=== PATIENT | female | born 1980 | race Caucasian/White ===

== ENCOUNTER → 2017-07-19 17:26 | Outpatient (CLI) | payer OTHER, SELFPAY ==
--- NOTE | 2017-07-19 | XR_ITS ---
XR chest 2V HISTORY: ITS.REASON: CHEST PAIN ORDERING PHYSICIAN: Raphael Parikh MD PATIENT AGE: 36 years COMPARISON: FINDINGS: The cardiomediastinal silhouette and pulmonary vascularity are within normal limits. The lungs are clear without infiltrates, suspicious nodules, or pleural effusions. No acute bony abnormalities. IMPRESSION: Negative chest, no acute finding
== END ==
PROVIDERS: PCP Family Medicine; Visit Provider Family Medicine
DX: R07.9 Chest pain, unspecified (principal); R03.0 Elevated blood-pressure reading, without diagnosis of hypertension
CPT/HCPCS: 71046

== ENCOUNTER → 2017-09-20 10:38 | Outpatient (CLI) | payer BC, SELFPAY ==
--- NOTE | 2017-09-20 10:43 | CT_ITS ---
CT chest w con INDICATION: Left-sided chest pain ITS.REASON: NON CARDIAC CHEST PAIN ORDERING PHYSICIAN: Raphael Parikh MD PATIENT AGE: 37 years COMPARISON: None TECHNIQUE: Axial images are obtained with contrast. Sagittal and coronal reformatted images are reviewed as well. All CT scans at the facility use one or more dose reduction, viz: automated exposure control; ma/kV adjustment per patient size (including targeted exams where dose is matched to indication; i.e. head); or iterative reconstruction technique. FINDINGS: The lung castano are well expanded. There is excellent vascular opacification. Cardiac size is normal and the vascularity is normal. Lung windows show no pulmonary infiltrate. There is no pleural fluid. There is no abnormal superior mediastinal or hilar lymphadenopathy. There is mild diffuse dextroscoliotic curvature of the thoracic spine. IMPRESSION: Unremarkable CT scan chest, no acute pathology noted.
== END ==
PROVIDERS: Family Provider Physician Assistant; PCP Family Medicine; Visit Provider Family Medicine
DX: R07.89 Other chest pain (principal)
CPT/HCPCS: 71260; Q9967

== ENCOUNTER → 2017-11-20 18:20 | Outpatient (REF) | payer BC, SELFPAY | LOC: LAB 18:20 | PROVIDERS: Visit Provider Emergency Medicine | DX: J02.9 Acute pharyngitis, unspecified (principal) ==

== ENCOUNTER → 2018-01-31 11:01 | Outpatient (CLI) | payer BC, SELFPAY ==
--- NOTE | 2018-01-31 11:06 | NVE_ITS ---
Venous Exam Indications: 729.5 Pain in limb. IMPRESSIONS No evidence of deep or superficial vein thrombosis involving the veins of the left upper extremity History: Left upper extremity pain. Risk factors: Family history of deep vein thrombosis. Hypercoagulable state due to hormone replacement therapy. Patient is taking control pills. States her daughter had PE's and DVT's recently so she was concerned that hers might be too. Left upper extremity venous duplex. Doppler flow study including spectral analysis, color and lee scale imaging. Location: Vascular laboratory. Patient status: Outpatient. Tables: Venous flow and imaging: + + + Location Flow properties + + + Left internal jugular Normal phasicity; spontaneous; compressible + + + Left subclavian Normal phasicity; spontaneous; normal augmentation; compressible + + + Left axillary Normal phasicity; spontaneous; normal augmentation; compressible + + + Left brachial Normal phasicity; spontaneous; normal augmentation; compressible + + + Left cephalic Normal phasicity; spontaneous; normal augmentation; compressible + + + Left basilic Normal phasicity ; spontaneous; normal augmentation; compressible + + + Left radial Compressible + + + Left ulnar Compressible + + + (Report amended ) Electronically signed by: Asim Bowles [id number]
== END ==
PROVIDERS: PCP Emergency Medicine; Visit Provider Nurse Practitioner Family
DX: M79.602 Pain in left arm (principal)
CPT/HCPCS: 93971

== ENCOUNTER → 2018-04-10 12:58 | Outpatient (CLI) | payer BC, SELFPAY | PROVIDERS: PCP Nurse Practitioner Family; Visit Provider Physician Assistant | DX: R07.9 Chest pain, unspecified (principal); R06.09 Other forms of dyspnea | CPT/HCPCS: 93017 ==

== ENCOUNTER → 2018-04-13 15:02 | Outpatient (CLI) | payer BC, SELFPAY ==
--- NOTE | 2018-04-13 15:03 | CA_ITS ---
PROCEDURE: 2-D M-mode and color Doppler study INDICATIONS FOR THE TEST: Chest pain+ COPD Heart Murmur Tobacco Smoking Palpitations Fatigue Syncope Edema Hypertension Diabetes Mellitus Rheumatic Fever SOB+MORENO Obesity Hyperlipidemia+ Family History HD Additional History abn ekg,pvc's PATIENT INFORMATION HEIGHT: 68 WEIGHT:191 GENDER: Female B/P:144/62 2-D/M-MODE INTERPRETATION: 2-D MEASUREMENTS OBSERVED VALUES IN CMS Right Ventricular Dimension (RVDd) 2.5 Interventricular Septum (Thickness)(IVsd) 0.8 Left Ventricular Internal Dimensions(LVIDd) 4.5 Left Ventricular Posterior Wall (Thickness)(LVPWd) 0.8 Aortic Root 2.4 Aortic Cusp Separation 2.2 Left Atrial Dimensions (LAD) 2.2 2D 1. Left Atrium is normal size, left ventricle is normal size, visually estimated ejection fraction of 55% with no regional wall motion abnormality, there is no concentric left ventricular hypertrophy. 2. The right atrium and right ventricle are normal size and contractility. 3. The aortic, mitral and tricuspid valve is normal. 4. The pulmonic valve is poorly visualized. 5. No significant pericardial effusion noted. DOPPLER INTERROGATION: Doppler interrogation of the aortic, mitral and tricuspid valvular presence of mild mitral and tricuspid regurgitation, tricuspid regurgitation jet velocity is inadequate for calculation of the right ventricular systolic pressure, diastolic parameters are within normal range. CONCLUSION: 1. Normal left ventricular size, preserved left ventricular systolic function, visually estimated ejection fraction 55% with no regional wall motion abnormality, diastolic parameters are within normal range. 2. Mild mitral and tricuspid regurgitation 3. No significant pericardial effusion noted.
== END ==
PROVIDERS: PCP Nurse Practitioner Family; Visit Provider Nurse Practitioner Family
DX: R06.00 Dyspnea, unspecified (principal); R07.9 Chest pain, unspecified
CPT/HCPCS: 93306

== ENCOUNTER → 2019-06-22 16:05 | Outpatient (CLI) | payer BC, SELFPAY | PROVIDERS: PCP Family Medicine; Visit Provider Physician Assistant | DX: R00.2 Palpitations (principal) | CPT/HCPCS: 93225; 93226 ==

== ENCOUNTER → 2019-06-29 14:42 | Outpatient (CLI) | payer BC, SELFPAY ==
[2019-06-30 08:49] LABS: Covid-19 Nasal PCR Sendout Lex Not Detected
--- NOTE | 2019-06-30 09:05 | PC.NURSE ---
Notified patient & Dr Frederikc of NEGATIVE COVID-19 results. Results faxed to [facility].
== END ==
PROVIDERS: Visit Provider Physician Assistant
DX: R06.02 Shortness of breath (principal)
CPT/HCPCS: U0003

== ENCOUNTER → 2019-07-06 15:49 | Outpatient (CLI) | payer BC, SELFPAY ==
--- NOTE | 2019-07-06 15:53 | MR_ITS ---
PROCEDURE: MR HEAD/BRAIN WO/W CON CLINICAL INDICATION: DIZZINESS Dizziness, headache, infection COMPARISON: No exams were available for comparison TECHNIQUE: Routine multiplanar multi echo sequences are performed without and with gadolinium enhancement. FINDINGS: Study is somewhat limited secondary to motion artifact. No midline shift, mass effect, intracranial hemorrhage, or hydrocephalus is evident. There is no evidence of acute infarction. No enhancing lesions are evident. There are cystic changes present in the medial aspect of the left cerebellar hemisphere contiguous with the lateral aspect of the 4th ventricle. This is without enhancement or surrounding mass effect and could be related to encephalomalacia change from an old infarction. Small cystic changes are also present in the left cerebral peduncle and lateral aspect of the melecio. There are a few scattered nonspecific small T2 white matter hyperintensities. No mastoid effusion or sinus air-fluid level. IMPRESSION: 1. No acute intracranial finding. 2. 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 This may represent an old area of infarction. Please correlate with clinical parameters. 3. There are few nonspecific scattered foci of T2 white matter hyperintensity which could be seen with ischemic gliotic change or migraine headache. Demyelinating process is included in the differential diagnosis but is felt to be less likely based on imaging characteristics. Dictated by: Asim Bowles MD 07/07/2019 12:28 Electronically signed by Asim Bowles MD in [place] 07/07/2019 12:28
== END ==
PROVIDERS: PCP Family Medicine; Visit Provider Physician Assistant
DX: R42 Dizziness and giddiness (principal)
CPT/HCPCS: 70553; A9576

== ENCOUNTER → 2019-08-01 14:19 | Outpatient (CLI) | payer BC, SELFPAY ==
--- NOTE | 2019-08-01 14:20 | CA_ITS ---
APPROVED REPORT EXAM: Comprehensive 2D, Doppler, and color-flow Echocardiogram Supervisor Blood: Yamilet Moss RDCS Ht: 5 ft 7 in Wt: 192lbs BSA: 1.99 BP: 110/70 mmHg Indications: PALPS,PVC,DIZZINESS 2D Dimensions LVOT 1.85 cm (M/F) 1.5-2.5 M-Mode Dimensions RVDd 2.74 cm (0.9-2.6) LVDd 4.90 cm (3.5-5.7) LVDs 3.57 cm (3.5-5.7) IVSd 0.87 cm (0.6-1.1) PWd 0.61 cm (0.6-1.1) EF (Teich) 52.70% FS 27.10% EDV (Teich) 112.80 mL ESV (Teich) 53.30 mL LV Diastology E/A Ratio 1.38 Mitral Valve MV A Velocity 55.00 (40-130 cm/s) Left Ventricle Left atrium is normal size, left ventricle is normal size, there is no concentric left ventricular hypertrophy, visually estimated ejection fraction 55% with no regional wall motion abnormality, diastolic parameters are within normal range. Right Ventricle Right atrium and right ventricular normal size and contractility. Aortic Valve Aortic valve is grossly normal, there is no aortic stenosis or aortic insufficiency. Mitral Valve Mitral valve is grossly normal, there is trace mitral regurgitation. Tricuspid Valve Tricuspid valve is grossly normal, there is trace tricuspid regurgitation. Pulmonic Valve Pulmonic valve is poorly visualized. Great Vessels Aortic root is normal size. Pericardium No significant pericardial effusion noted. Conclusion 1. Normal left ventricular size, preserved left ventricular systolic function, visually estimated ejection fraction 55% with no regional wall motion abnormality, diastolic parameters are within normal range. 2. Trace mitral and tricuspid regurgitation of no hemodynamic significance. 3. No significant pericardial effusion noted. Electronically signed by : Cruz Koo, 08/02/2019 16:13:16
== END ==
PROVIDERS: PCP Family Medicine; Visit Provider Physician Assistant
DX: R07.9 Chest pain, unspecified (principal); R06.00 Dyspnea, unspecified; I49.3 Ventricular premature depolarization; E78.5 Hyperlipidemia, unspecified
CPT/HCPCS: 93306

== ENCOUNTER 2019-08-26 15:30 | Emergency (ER) | payer BC, SELFPAY ==
[2019-08-26 15:42] VITALS: BP 142/77; PULSE 81; RESP 20; TEMP 37.1; O2SAT 98; BMI 29.7
--- NOTE | 2019-08-26 15:53 | HMH.EDUTC ---
[facility] [place] Disposition Clinical Impression: Poison josephine dermatitis Contact dermatitis Qualifiers: Contact dermatitis type: unspecified Contact dermatitis trigger: other trigger Qualified Code(s): L25.8 - Unspecified contact dermatitis due to other agents Cellulitis Qualifiers: Site of cellulitis: trunk Site of cellulitis of trunk: abdominal wall Qualified Code(s): L03.311 - Cellulitis of abdominal wall Disposition: Home, Self-Care Condition on Discharge: Good Instructions: Cellulitis, DI for Poison Josephine Allergy Additional Instructions: Drink plenty of fluids. Take tylenol or ibuprofen for pain or fever. Take benedryl every 6 hours regularly for the next 3 days at least. Take the medications as directed. The zofran is for nausea. The medications can cause upset stomach. Follow up with your regular doctor. GO TO THE ER FOR ANY WORSENING SYMPTOMS Don't start the oral steroids until tomorrow, since you had the shot here today. Prescriptions: Ondansetron [Zofran 4mg ODT] 4 mg PO Q8HP PRN #10 tab.rapdis PRN Reason: Nausea Transmission Status: Received by [id number] predniSONE [Deltasone 10mg tablet] 10 mg PO BID 9 Days #21 tab Transmission Status: Received by [id number] Doxycycline Hyclate [Doxycycline 100mg Capsule] 100 mg PO Q12 10 Days #20 cap Transmission Status: Received by [facility] Triamcinolone Acetonide 1 applicatio TP TIDP PRN 7 Days #1 tube PRN Reason: Itching Transmission Status: Received by [facility] Referrals: Lindy Vang PA [Primary Care Provider] - Time of Disposition: 16:15 Medical Decision Making - Medical Records Medical records reviewed: No: I reviewed the patient's medical records. - Keo Inquiry Pt receiving controlled substance: No Vital Signs: 08/26/19 15:42 08/26/19 16:15 Temperature 98.8 F 98.8 F Temperature Source Oral Pulse Rate 81 Pulse Rate [Right Brachial] 81 Respiratory Rate 20 20 Blood Pressure 142/77 H Blood Pressure [Right Arm] 142/77 H Blood Pressure Mean [Right Arm] 98 Blood Pressure Source [Right Arm] Automatic Cuff Blood Pressure Position [Right Arm] Sitting 02 Sat by Pulse Oximetry 98 Oxygen Delivery Method Room Air Orders (Tests/Meds): ED MEDICATIONS Discontinued Medications Generic Name Dose Route Start Last Admin Trade Name Jewel PRN Reason Stop Dose Admin Methylprednisolone Sodium Succinate 125 mg 08/26/19 15:53 08/26/19 16:00 Solu-Medrol 125mg/2ml Vial IM 08/26/19 15:54 125 mg ONCE ONE Administration [facility] [place] HPI - General Stated complaint: rash on right side Time Seen by Provider: 08/26/19 15:53 Mode of Arrival: Ambulatory Source of Information: Patient Limitations: No Limitations Description of Symptoms (Recalled from Triage Doc. by RN): PATIENT C/O RASH TO RIGHT SIDE X 3 DAYS, POSSIBLE POISON JOSEPHINE. REDNESS AND DRAINAGE NOTED HEENT Symptoms (Recalled from RN notes): No Resp Symptoms (Recalled from RN notes): No Skin Symptoms (Recalled from RN notes): Yes MS Symptoms (Recalled from RN notes): No Functional Status (Recalled from RN notes): WNL - History of Present Illness Provider Complaint: She states that she was pulling weeds in her yard 3 days ago when she came into contact with poison josephine. Since then she has broke out with a rash on her right flank, across her abdomen, small areas on her face and several small areas on her forearms. She denies any fever or chills. - Related Data Home Medications Medication Instructions Recorded Confirmed norgestimate-ethinyl estradiol 1 tab PO ONCE 05/27/17 04/10/18 Previous Rx's Medication Instructions Recorded propranolol 20 mg tablet 20 mg PO BID #60 tab 06/29/19 Doxycycline Hyclate [Doxycycline 100 mg PO Q12 10 Days #20 cap 08/26/19 100mg Capsule] Ondansetron [Zofran 4mg ODT] 4 mg PO Q8HP PRN #10 tab.rapdis 08/26/19 Triamcinolone Acetonide 1 applicatio TP TIDP PRN 7 Da
[2019-08-26 16:15] VITALS: BP 142/77; PULSE 81; RESP 20; TEMP 37.1; O2SAT 98
== END 2019-08-26 16:21 | disposition home or self-care (01) ==
PROVIDERS: Emergency Provider Nurse Practitioner Family; PCP Physician Assistant
DX: L24.7 Irritant contact dermatitis due to plants, except food (principal); L03.311 Cellulitis of abdominal wall; Z88.0 Allergy status to penicillin
CPT/HCPCS: 96372; 99201

== ENCOUNTER → 2019-09-25 16:20 | Outpatient (CLI) | payer BC, SELFPAY ==
--- NOTE | 2019-09-25 16:23 | MM_ITS ---
PROCEDURE: MM DIG SCREENING MAMM BI W/CAD Digital Breast Tomosynthesis Included CLINICAL INDICATION: SCREENING There is a history of breast cancer patient's maternal grandmother. The patient is currently on control pills. COMPARISON: [facility] MOBILE BREAST TOMOSYNTHESIS SCREEN from 07/28/2017 [facility] ROXANE DIGITAL SCREEN BILATERAL from 08/09/2018 TECHNIQUE: Standard CC and MLO images and 3D Tomosynthesis was obtained. R2 CAD reviewed. FINDINGS: Moderate diffuse fibroglandular densities are seen in the central portions of both breasts. There are scattered benign-appearing microcalcifications in each breast. There has been some mild fatty replacement of the breast parenchyma compared to the previous 2 studies from July 2017 in August 2018. IMPRESSION: Moderate diffuse breast density with no suspicious lesions seen BI-RAD Category: 2 Benign Finding(s) FOLLOW-UP: 1YR 1 Year Follow-up (A letter has been sent to the patient regarding results of the study.) Dictated by: Dr. Enrike Fitch MD 09/29/2019 09:[address] Enrike Fitch MD in [place] 09/29/2019 09:58
== END ==
PROVIDERS: PCP Physician Assistant; Visit Provider Obstetrics & Gynecology
DX: Z12.31 Encounter for screening mammogram for malignant neoplasm of breast (principal)
CPT/HCPCS: 77063; 77067

== ENCOUNTER → 2020-03-05 14:07 | Outpatient (CLI) | payer BC, SELFPAY ==
--- NOTE | 2020-03-05 14:18 | XR_ITS ---
PROCEDURE: XR ORTHOPANTOGRAM CLINICAL INDICATION: DISORDER OF SOFT TISSUE NECK COMPARISON: No exams were available for comparison FINDINGS: No fracture or dislocation. No lytic or blastic change. There is normal mineralization. The joint spaces are well-preserved. No significant degenerative/arthritic changes. No erosive changes evident. Other findings:None. IMPRESSION: No acute findings. Dictated by: Asim Bowles MD 03/10/2020 09:53 Asim Bowles MD in [place] 03/10/2020 09:53
== END ==
PROVIDERS: PCP Family Medicine; Visit Provider Family Medicine
DX: M79.9 Soft tissue disorder, unspecified (principal)
CPT/HCPCS: 70355

== ENCOUNTER → 2020-10-03 10:54 | Outpatient (CLI) | payer BC, SELFPAY ==
--- NOTE | 2020-10-03 10:57 | MM_ITS ---
PROCEDURE: MM DIG SCREENING MAMM BI W/CAD Digital Breast Tomosynthesis Included CLINICAL INDICATION: SCREENING COMPARISON: [facility] MOBILE BREAST TOMOSYNTHESIS SCREEN from 07/28/2017 [facility] ROXANE DIGITAL SCREEN BILATERAL from 08/09/2018 [facility] MM DIG SCREENING MAMM BI W/CAD from 09/25/2019 TECHNIQUE: Standard CC and MLO images and 3D Tomosynthesis was obtained. R2 CAD reviewed. FINDINGS: There is average to dense fibroglandular tissue. No malignant appearing mass or malignant-appearing microcalcification. Numerous skin calcifications are present. No asymmetric density architectural distortion or skin thickening. IMPRESSION: No evidence of malignancy BI-RAD Category: 2 Benign Finding FOLLOW-UP: 1 YR 1 Year Follow-up (A letter has been sent to the patient regarding results of the study.) Dictated by: Asim Bowles MD 10/10/2020 17:16 Asim Bowles MD in [place] 10/10/2020 17:16
== END ==
PROVIDERS: PCP Family Medicine; Visit Provider Obstetrics & Gynecology
DX: Z12.31 Encounter for screening mammogram for malignant neoplasm of breast (principal)
CPT/HCPCS: 77063; 77067

== ENCOUNTER → 2020-11-18 11:20 | Outpatient (CLI) | payer BC, SELFPAY | PROVIDERS: PCP Physician Assistant; Visit Provider Nurse Practitioner | DX: U07.1 COVID-19 (principal) | CPT/HCPCS: C9803; U0003; U0005 ==

== ENCOUNTER → 2020-11-27 15:11 | Outpatient (CLI) | payer BC, SELFPAY ==
[2020-11-27 15:43] LABS: Basophils # 0.1 K/mm3 (0-0.2); Basophils % 0.9 % (0.1-2.0); Eosinophils # 0.1 K/mm3 (0.0-0.4); Hematocrit 42.2 % (37.0-47.0); Hemoglobin 13.5 g/dL (12.2-16.2); Lymphocytes # 3.5 K/mm3 (0.7-4.5); Lymphocytes % 30.1 % (10-50); Mean Corpuscular Hemoglobin 29.1 pg (27.0-31.2); Mean Corpuscular Volume 90.9 fl (81-99); Monocytes # 0.3 K/mm3 (0.1-1.0); Monocytes % 2.4 % (1.7-9.3); Neutrophils # 7.5 K/mm3 (1.8-7.8); Neutrophils % 65.6 % (37.0-80.0); Platelet Count 353 K/mm3 (142-424); Red Blood Count 4.64 M/mm3 (4.20-5.40); Red Cell Distribution Width 13.5 % (11.5-17.5); White Blood Count 11.5 K/mm3 (4.8-10.8)
[2020-11-27 16:19] LABS: Chloride 105 mmol/L (98-107); Sodium 139 mmol/L (136-145)
[2020-11-27 16:21] LABS: Alanine Aminotransferase 15 U/L (12-78); Blood Urea Nitrogen 8 mg/dl (7-17); Estimated Glomerular Filt Rate 80 ml/min (>60); GFR (African American) 97 ML/MIN (>60)
[2020-11-27 16:22] LABS: Albumin Level 4.5 g/dl (3.5-5.0); Albumin/Globulin Ratio 1.6 (1.1-1.8); Alkaline Phosphatase 63 U/L (38-126); Aspartate Amino Transferase 24 U/L (14-36); Bilirubin,Total 0.1 mg/dl (0.2-1.3); Calcium 9.4 mg/dl (8.4-10.2); Carbon Dioxide 22 mmol/L (22.0-30.0); Globulin 2.9 g/dL (1.3-3.2); Glucose 121 mg/dl (74-100); Total Protein,Serum 7.4 g/dl (6.3-8.2)
== END ==
PROVIDERS: Visit Provider Physician Assistant
DX: N30.90 Cystitis, unspecified without hematuria (principal); J06.9 Acute upper respiratory infection, unspecified
CPT/HCPCS: 36415; 80053; 85025

== ENCOUNTER → 2020-11-28 14:23 | Outpatient (CLI) | payer BC, SELFPAY ==
[2020-11-28 14:27] LABS: Microscopic, Urine URINE MICROSCOPIC (MICROSCOPIC)
[2020-11-28 14:53] LABS: Appearance,Urine SL CLOUDY (Clear); Bilirubin,Urine Negative (Negative); Blood, Urine 3+ (Negative); Color,Urine ORANGE (Yellow); Glucose,Urine (UA) TRACE (Negative); Ketones,Urine TRACE (Negative); Leukocyte Esterase,Urine 2+ (Negative); Nitrate,Urine POSITIVE (Negative); Protein,Urine 1+ (Negative)
[2020-11-28 15:16] LABS: Bacteria,Urine 2+ /lpf; WBC,Urine Occasional #/hpf (0-3)
== END ==
PROVIDERS: Visit Provider Physician Assistant
DX: R35.0 Frequency of micturition (principal)
CPT/HCPCS: 81001; 87086

== ENCOUNTER → 2020-12-03 16:42 | Outpatient (CLI) | payer BC, SELFPAY ==
--- NOTE | 2020-12-03 16:46 | XR_ITS ---
PROCEDURE: XR ABDOMEN MIN 2V CLINICAL INDICATION: LOWER ABD PAIN COMPARISON: No exams were available for comparison FINDINGS: Upright and supine views of the abdomen demonstrates a nonspecific nonobstructive bowel gas pattern. There are 2 small right renal calculi largest 3 mm. No obvious ureteral calculi. There is minimal lumbar curvature convex right. No free air evident. IMPRESSION: Right nephrolithiasis Dictated by: Asim Bowles MD 12/03/2020 17:13 Asim Bowles MD in [place] 12/03/2020 17:13
== END ==
PROVIDERS: PCP Physician Assistant; Visit Provider Physician Assistant
DX: R10.30 Lower abdominal pain, unspecified (principal)
CPT/HCPCS: 74019

== ENCOUNTER → 2020-12-05 06:55 | Outpatient (CLI) | payer BC, SELFPAY ==
--- NOTE | 2020-12-05 06:56 | CT_ITS ---
PROCEDURE: CT ABDOMEN PELVIS WO CON CLINICAL INDICATION: kidney stone COMPARISON: No exams were available for comparison TECHNIQUE: Axial images obtained with sagittal and coronal reformats. All CT scans at the facility use one or more dose reduction, viz: automated exposure control, ma/kV adjustment per patient size (including targeted exams where dose is matched to indication, i.e. head), or iterative reconstruction technique. FINDINGS: LOWER THORAX: No acute finding ABDOMEN & PELVIS: The liver, spleen, adrenal glands, pancreas, and gallbladder have an unremarkable unenhanced appearance. A 3 mm nonobstructing stone is present in the mid polar region of the right kidney. No ureteral calculi. No hydronephrosis. No bladder stones apparent. No intestinal obstruction or free air. There is a mild amount of retained colonic feces. No evidence of appendicitis. The right ovary is enlarged at 5.5 x 3 cm. No abnormal pelvic fluid collections. No acute bony findings. IMPRESSION: Nonobstructing right nephrolithiasis. No ureteral calculi evident. Enlarged right ovary. Pelvic ultrasound may provide further evaluation. Dictated by: Asim Bowles MD 12/05/2020 10:25 Asim Bowles MD in [place] 12/05/2020 10:25
== END ==
PROVIDERS: PCP Physician Assistant; Visit Provider Urology
DX: N20.0 Calculus of kidney (principal)
CPT/HCPCS: 74176

== ENCOUNTER → 2020-12-12 10:37 | Outpatient (CLI) | payer BC, SELFPAY ==
--- NOTE | 2020-12-12 10:37 | MR_ITS ---
PROCEDURE INFORMATION: Exam: MR Pelvis Without and With Contrast Exam date and time: 12/12/2020 10:37 AM Age: 40 years old Clinical indication: Pelvic pain; Additional info: Ureteral diverticulum. Constant urge to urinate. Pain in urethra and painful to urinate. Symptoms x3wks. Symptoms since having covid. Known kidney stones. 17ml prohance given. Lot: [id number] exp: Sep [address] 12-05-20 TECHNIQUE: Imaging protocol: Magnetic resonance images of the pelvis without and with intravenous contrast. Contrast material: PROHANCE; Contrast volume: 17 ml; Contrast route: IV; COMPARISON: CT ABDOMEN PELVIS WO CON 12/05/2020 6:58 AM FINDINGS: Intraperitoneal space: No free fluid. Bladder: The urinary bladder appears unremarkable. No urethral diverticulum is seen. Reproductive: Two adjacent simple cysts are seen in the right ovary measuring up to 6.1 cm in sum. The left ovary appears unremarkable. Unremarkable appearance of the uterus, cervix and vagina. Bones/joints: Unremarkable. No fracture. Soft tissues: Unremarkable. IMPRESSION: Right ovarian simple cysts. Otherwise, unremarkable pelvic MRI. No evidence of urethral diverticulum.
== END ==
PROVIDERS: PCP Physician Assistant; Visit Provider Urology
DX: N28.89 Other specified disorders of kidney and ureter (principal)
CPT/HCPCS: 72197; A9576

== ENCOUNTER → 2021-01-08 13:42 | Outpatient (CLI) | payer BC, SELFPAY ==
[2021-01-08 13:48] LABS: Microscopic, Urine URINE MICROSCOPIC (MICROSCOPIC)
[2021-01-08 14:07] LABS: Appearance,Urine CLEAR (Clear); Bilirubin,Urine Negative (Negative); Blood, Urine Negative (Negative); Color,Urine YELLOW (Yellow); Glucose,Urine (UA) Negative (Negative); Ketones,Urine Negative (Negative); Leukocyte Esterase,Urine Negative (Negative); Nitrate,Urine Negative (Negative); Protein,Urine Negative (Negative); Urobilinogen,Urine 0.2 EU/dl (0.2)
[2021-01-08 14:28] LABS: Bacteria,Urine 1+ /lpf; WBC,Urine Occasional #/hpf (0-3)
[2021-01-10 08:37] LABS: HSV 1 IgG, Type Spec <0.91 index (0.00-0.90); HSV 2 IgG, Type Spec <0.91 index (0.00-0.90)
[2021-01-12 23:15] LABS: Neisseria gonorrhoeae, NAA Negative (Negative)
== END ==
PROVIDERS: Visit Provider Physician Assistant
DX: Z20.2 Contact with and (suspected) exposure to infections with a predominantly sexual mode of transmission (principal)
CPT/HCPCS: 36415; 81001; 86695; 86790; 87086; 87491; 87591

== ENCOUNTER → 2021-06-04 15:17 | Outpatient (CLI) | payer BC, SELFPAY ==
--- NOTE | 2021-06-04 | CA_ITS ---
FINAL REPORT TECHNIQUE: Color Doppler, duplex Doppler and compression sonography of the left lower extremity deep venous systems was performed. CLINICAL HISTORY: Patient developed burning sensation in the distal posterior knee into calf of the LLE. She states this began on 05/31/21. She denies trauma. Her daughter has a factor 5 clotting disorder with history of DVT and PE's so patient is concerned for DVT in herself today. FINDINGS: There is no evidence of deep venous thrombosis from the level of the groin to the calf. The veins are patent and compressible. IMPRESSION: No evidence of deep venous thrombosis left lower extremity. Reviewed, Interpreted and Dictated by Wei Gibson III, MD Transcribed by Bhargavi Villalta Authenticated by Wei Gibson III, MD on 06/04/2021 04:42:52 PM [facility]
== END ==
PROVIDERS: PCP Physician Assistant; Visit Provider Physician Assistant
DX: M79.662 Pain in left lower leg (principal); M79.89 Other specified soft tissue disorders
CPT/HCPCS: 93971

== ENCOUNTER → 2021-11-12 10:53 | Outpatient (CLI) | payer BC, SELFPAY ==
--- NOTE | 2021-11-12 10:57 | MM_ITS ---
PROCEDURE INFORMATION: Exam: MG Bilateral Screening 3D Mammography Exam date and time: 11/12/2021 10:54 AM Age: 41 years old Clinical indication: Screening examination TECHNIQUE: Imaging protocol: Bilateral Screening tomosynthesis and 2D mammography including computer-aided detection (CAD) when performed. COMPARISON: 1. MG MM DIG SCREENING MAMM BI W/CAD 10/03/2020 10:56 AM 2. MG MM DIG SCREENING MAMM BI W/CAD 09/25/2019 4:24 PM 3. [facility] DIGITAL SCREEN BILATERAL 08/09/2018 10:30 AM FINDINGS: MAMMOGRAPHY: Breast composition: The breast is heterogeneously dense, which may obscure small masses. Mass: None. Architectural distortion: No new or suspicious architectural distortion. Calcifications: Stable benign-appearing calcifications are present. No new or suspicious cluster of microcalcifications have developed. Asymmetric density: No new or suspicious asymmetric density is present Skin thickening: None. Axillary adenopathy: None. IMPRESSION: No mammographic evidence of malignancy. Recommend annual screening mammography unless otherwise clinically indicated. ASSESSMENT: BI-RADS category 2: Benign
== END ==
PROVIDERS: PCP Physician Assistant; Visit Provider Obstetrics & Gynecology
DX: Z12.31 Encounter for screening mammogram for malignant neoplasm of breast (principal)
CPT/HCPCS: 77063; 77067

== ENCOUNTER → 2021-12-30 14:53 | Outpatient (CLI) | payer SELFPAY ==
--- NOTE | 2021-12-30 14:59 | US_ITS ---
PROCEDURE INFORMATION: Exam: US Left Breast, Complete Exam date and time: 12/30/2021 3:01 PM Age: 41 years old Clinical indication: Questionable palpable abnormality in the left axilla. Lt breast tenderness TECHNIQUE: Imaging protocol: Complete ultrasound of all four quadrants of the Left breast and the retroareolar regions, including ultrasound of the axilla when performed. COMPARISON: MG MM DIG SCREENING MAMM BI W/CAD 11/12/2021 10:54 AM FINDINGS: Breast: Sonographic images of the left breast including the retroareolar region, all 4 quadrants and the axilla do not demonstrate any solid masses. Minimal subcentimeter cystic change in the left 2 o'clock axis. No architectural distortion or acoustical shadowing. No skin thickening or axillary adenopathy. Several fat containing benign-appearing axillary lymph nodes are present. Other findings: Review of the patient's most recent mammogram dated 11/12/2021 did not demonstrate any suspicious findings. IMPRESSION: Palpable abnormality in the left axilla corresponds both mammographically and sonographically to normal anatomic structures. There is no mammographic evidence of malignancy. Further evaluation of a palpable abnormality should be based on clinical grounds regardless of radiographic findings or lack thereof. Minimal cystic change in the left breast. Annual mammographic screening is recommended unless otherwise clinically indicated. ASSESSMENT: BI-RADS Category 2: Benign
== END ==
PROVIDERS: PCP Physician Assistant; Visit Provider Nurse Practitioner Obstetrics & Gynecology
DX: M79.622 Pain in left upper arm (principal)
CPT/HCPCS: 76641

== ENCOUNTER → 2022-05-28 11:07 | Outpatient (CLI) | payer OTHER, SELFPAY | PROVIDERS: PCP Nurse Practitioner Family; Visit Provider Nurse Practitioner Family | DX: N39.0 Urinary tract infection, site not specified (principal) | CPT/HCPCS: 87086 ==

== ENCOUNTER → 2022-12-01 15:17 | Outpatient (CLI) | payer BC, SELFPAY ==
--- NOTE | 2022-12-01 15:20 | MM_ITS ---
PROCEDURE INFORMATION: Exam: MG Bilateral Screening 3D Mammography Exam date and time: 12/01/2022 3:08 PM Age: 42 years old Clinical indication: Screening mammogram TECHNIQUE: Imaging protocol: Bilateral Screening tomosynthesis and 2D mammography including computer-aided detection (CAD) when performed. COMPARISON: 1. MG MM DIG SCREENING MAMM BI W/CAD 11/12/2021 10:54 AM 2. MG MM DIG SCREENING MAMM BI W/CAD 10/03/2020 10:56 AM 3. MG MM DIG SCREENING MAMM BI W/CAD 09/25/2019 4:24 PM 4. [facility] DIGITAL SCREEN BILATERAL 08/09/2018 10:30 AM FINDINGS: MAMMOGRAPHY: Breast composition: The breast is heterogeneously dense, which may obscure small masses. Mass: None. Architectural distortion: No new or suspicious architectural distortion. Calcifications: No new or suspicious calcifications are present Asymmetric density: No new or suspicious asymmetric density is present Skin thickening: None. Axillary adenopathy: None. IMPRESSION: No mammographic evidence of malignancy. Recommend annual screening mammography unless otherwise clinically indicated. ASSESSMENT: BI-RADS category 1: Negative
== END ==
PROVIDERS: PCP Physician Assistant; Visit Provider Nurse Practitioner Obstetrics & Gynecology
DX: Z12.31 Encounter for screening mammogram for malignant neoplasm of breast (principal)
CPT/HCPCS: 77063; 77067

== ENCOUNTER → 2023-02-09 23:00 | Outpatient (CLI) | payer BC, SELFPAY ==
[2023-02-09 20:55] LABS: Amphetamine/Metha Screen,Urine Negative ng/ml (<1000)
[2023-02-09 20:56] LABS: Barbiturates Screen,Urine Negative ng/ml (<200)
[2023-02-09 20:57] LABS: Benzodiazepines Screen,Urine Negative ng/ml (<200)
[2023-02-09 20:58] LABS: Cannabinoid Screen,Urine Negative ng/ml (<50); Cocaine Screen,Urine Negative ng/ml (<300)
[2023-02-09 20:59] LABS: Methadone Screen,Urine Negative ng/ml (<300)
[2023-02-09 21:00] LABS: Opiate Screen,Urine Negative ng/ml (<300)
[2023-02-09 21:02] LABS: Phencyclidine Screen,Urine Negative ng/ml (<25)
== END ==
PROVIDERS: PCP Physician Assistant; Visit Provider Physician Assistant
DX: F41.9 Anxiety disorder, unspecified (principal)
CPT/HCPCS: 80305

== ENCOUNTER → 2023-02-21 16:24 | Outpatient (CLI) | payer BC, OTHER, SELFPAY ==
[2023-02-21 17:00] LABS: Basophils % 0.3 % (0.1-2.0); Eosinophils # 0.1 K/mm3 (0.0-0.4); Eosinophils % 1.3 % (0.1-12.0); Hematocrit 40.6 % (37.0-47.0); Hemoglobin 13.7 g/dL (12.2-16.2); Lymphocytes # 3.2 K/mm3 (0.7-4.5); Lymphocytes % 28.8 % (10-50); Mean Corpuscular HGB Conc 33.8 g/dL (31.8-35.4); Mean Corpuscular Volume 88.8 fl (81-99); Mean Platelet Volume 6.7 fl (7.4-10.4); Monocytes # 0.3 K/mm3 (0.1-1.0); Monocytes % 2.6 % (1.7-9.3); Neutrophils # 7.5 K/mm3 (1.8-7.8); Platelet Count 294 K/mm3 (142-424); Red Blood Count 4.57 M/mm3 (4.20-5.40); White Blood Count 11.2 K/mm3 (4.8-10.8)
[2023-02-21 17:19] LABS: Alanine Aminotransferase 18 U/L (12-78); Albumin Level 4.5 g/dl (3.5-5.0); Albumin/Globulin Ratio 1.5 (1.1-1.8); Alkaline Phosphatase 61 U/L (38-126); Aspartate Amino Transferase 26 U/L (14-36); Bilirubin,Total 0.3 mg/dl (0.2-1.3); Blood Urea Nitrogen 12 mg/dl (7-17); Calcium 8.8 mg/dl (8.4-10.2); Carbon Dioxide 21 mmol/L (22.0-30.0); Chloride 106 mmol/L (98-107); Estimated Glomerular Filt Rate 79 ml/min (>60); GFR (African American) 96 ML/MIN (>60); Glucose 90 mg/dl (74-100); Sodium 133 mmol/L (136-145); Total Protein,Serum 7.5 g/dl (6.3-8.2)
[2023-02-21 17:49] LABS: Thyroid Stimulating Hormone 4.18 uIU/mL (0.465-4.68)
[2023-02-22 09:59] LABS: Monoscreen (Rapid) Negative (Negative)
[2023-02-22 14:13] LABS: C-Reactive Protein 19.6 mg/L (0-4)
[2023-02-23 17:08] LABS: EBV Ab VCA, IgM <36.0 U/mL (0.0-35.9)
[2023-02-24 18:10] LABS: Anti-Centromere B Antibodies <0.2 AI (0.0-0.9); Anti-DNA (DS) Ab Qn 1 IU/mL (0-9); Anti-Jo-1 <0.2 AI (0.0-0.9); Antichromatin Antibodies <0.2 AI (0.0-0.9); Antiscleroderma-70 Antibodies <0.2 AI (0.0-0.9); RNP Antibodies <0.2 AI (0.0-0.9); Sjogren's Anti-SS-B <0.2 AI (0.0-0.9)
[2023-03-01 09:19] LABS: Anti-Centromere B Abs Charge YES; Anti-DNA (DS) Ab Charge YES; Anti-Jo-1 Charge YES; Antichromatin Abs Charge YES; Antinuclear Antibodies (ANA) POSITIVE; Antiscleroderma-70 Abs Charge YES; RNP Antibodies Charge YES; Sjogren's Anti-SS-A Ab Charge YES; Sjogren's Anti-SS-B Ab Charge YES; Smith Antibodies Charge YES
== END ==
PROVIDERS: Family Medicine; PCP Physician Assistant; Visit Provider Physician Assistant
DX: R53.83 Other fatigue (principal)
CPT/HCPCS: 36415; 80053; 84443; 85025; 86038; 86140; 86225; 86235; 86318; 86664; 86665

== ENCOUNTER → 2023-02-22 13:29 | Outpatient (CLI) | payer BC, SELFPAY | PROVIDERS: PCP Physician Assistant; Visit Provider Physician Assistant | DX: R53.83 Other fatigue (principal); R50.9 Fever, unspecified | CPT/HCPCS: 86038; 86140; 86225; 86235; 86318 ==

== ENCOUNTER 2023-06-03 18:03 | Outpatient (CLI) | payer BC, OTHER, SELFPAY | END 2023-06-03 23:59 | LOC: LAB.DROPOF 18:04 | PROVIDERS: PCP Student in an Organized Health Care Education/Training Program; Visit Provider Student in an Organized Health Care Education/Training Program | DX: N39.0 Urinary tract infection, site not specified (principal); B95.2 Enterococcus as the cause of diseases classified elsewhere | CPT/HCPCS: 87086 ==

== ENCOUNTER 2023-06-13 16:24 | Outpatient (CLI) | payer BC, OTHER, SELFPAY ==
[2023-06-13 16:28] LABS: Microscopic, Urine URINE MICROSCOPIC (MICROSCOPIC)
[2023-06-13 17:10] LABS: Appearance,Urine CLEAR (Clear); Bilirubin,Urine Negative (Negative); Blood, Urine Negative (Negative); Color,Urine YELLOW (Yellow); Glucose,Urine (UA) Negative (Negative); Ketones,Urine Negative (Negative); Leukocyte Esterase,Urine Negative (Negative); Nitrate,Urine Negative (Negative); Protein,Urine Negative (Negative); Urobilinogen,Urine 0.2 EU/dl (0.2)
== END 2023-06-13 23:59 ==
LOC: LAB 16:25
PROVIDERS: PCP Student in an Organized Health Care Education/Training Program; Visit Provider Student in an Organized Health Care Education/Training Program
DX: R39.15 Urgency of urination (principal)
CPT/HCPCS: 81001; 87086

== ENCOUNTER 2023-07-22 12:14 | Outpatient (CLI) | payer BC, SELFPAY ==
[2023-07-22 12:22] LABS: Microscopic, Urine URINE MICROSCOPIC (MICROSCOPIC)
[2023-07-22 13:14] LABS: Appearance,Urine CLEAR (Clear); Bilirubin,Urine Negative (Negative); Blood, Urine Negative (Negative); Color,Urine YELLOW (Yellow); Glucose,Urine (UA) Negative (Negative); Ketones,Urine Negative (Negative); Leukocyte Esterase,Urine 2+ (Negative); Nitrate,Urine Negative (Negative); PH,Urine 6.5 (5.0-8.5); Protein,Urine Negative (Negative); Urobilinogen,Urine 0.2 EU/dl (0.2)
[2023-07-22 14:49] LABS: Bacteria,Urine 3+ /lpf
== END 2023-07-22 23:59 | disposition home or self-care (01) ==
PROVIDERS: PCP Physician Assistant; Visit Provider Physician Assistant
DX: R30.0 Dysuria (principal); N39.0 Urinary tract infection, site not specified
CPT/HCPCS: 81001; 87086

== ENCOUNTER 2023-12-14 15:21 | Outpatient (CLI) | payer BC, SELFPAY ==
--- NOTE | 2023-12-14 15:25 | MM_ITS ---
PROCEDURE INFORMATION: Exam: MG Bilateral Screening 3D Mammography Exam date and time: 12/14/2023 3:08 PM Age: 43 years old Clinical indication: Screening examination TECHNIQUE: Imaging protocol: Bilateral Screening tomosynthesis and 2D mammography including computer-aided detection (CAD) when performed. COMPARISON: 1. MG MM DIG SCREENING MAMM BI W/CAD 12/01/2022 3:08 PM 2. MG MM DIG SCREENING MAMM BI W/CAD 11/12/2021 10:54 AM FINDINGS: MAMMOGRAPHY: Breast composition: The breasts are heterogeneously dense, which may obscure small masses. Mass: None. Architectural distortion: None. Calcifications: No suspicious calcifications. Asymmetric density: None. Skin thickening: None. Axillary adenopathy: None. IMPRESSION: No mammographic evidence of malignancy. Annual screening is recommended unless otherwise clinically indicated. ASSESSMENT: BI-RADS Category 1: Negative.
== END 2023-12-14 23:59 | disposition home or self-care (01) ==
LOC: RAD 15:21
PROVIDERS: PCP Physician Assistant; Visit Provider Nurse Practitioner Obstetrics & Gynecology
DX: Z12.31 Encounter for screening mammogram for malignant neoplasm of breast (principal)
CPT/HCPCS: 77063; 77067

== ENCOUNTER 2024-03-22 10:53 | Outpatient (CLI) | payer BC, SELFPAY ==
--- NOTE | 2024-03-22 10:58 | XR_ITS ---
FINAL REPORT CLINICAL HISTORY: Nonspecific cough COMPARISON: None FINDINGS: No acute pulmonary density is evident. There is no evidence of effusion or other pleural disease. The mediastinum has a normal appearance. The cardiac silhouette is unremarkable. IMPRESSION: Unremarkable chest exam. Reviewed, Interpreted and Dictated by Amanda Hammer MD Transcribed by Rosanna Santoro Authenticated and [facility]
== END 2024-03-22 23:59 | disposition home or self-care (01) ==
LOC: RAD 10:54
PROVIDERS: PCP Physician Assistant; Visit Provider Physician Assistant
DX: R05.9 Cough, unspecified (principal)
CPT/HCPCS: 71046

== ENCOUNTER 2025-02-19 07:52 | Outpatient (CLI) | payer BC, OTHER, SELFPAY ==
--- OUTSIDE RECORDS SUMMARY | 2024-12-24 10:50 | XMS_ITS | Encounter Summary ---
Author Organization [facility] Address [address] [place] [address] Care Team Providers Care C.O.D. Audit Clerk Name Role Phone Ruby Beaulieu Primary Care Provider [phone] Reason for Visit * Reason Comments Post-op Problem visit Encounter Details Date Type Department Care Team (Late st Contact Info) Description 12/24/2024 11:50 AM EDT Office Visit [facility] OBGYN [address] [place] [address] Angie Alvarenga MD [address] [facility] [address] [place] [address] Heartburn (Primary Dx); Postoperative follow-up; Bloating; Abnormal urine odor Social History Tobacco Use Types Packs/Day Years Used Date Smoking Tobacco: Never Smokeless Tobacco: Never Alcohol Use Standard Drinks/Week Comments Yes 0 (1 standard drink = 0.6 oz pur e alcohol) Rare AUDIT-C Answer Date Recorded Q1: How often do you have a drink containing alc ohol? Monthly or less 11/13/2024 Q2: How many drinks containi ng alcohol do you have on a typical day when you are drinking? 1 or 2 11/13/2024 Q3: How often do you have si x or more drinks on one occasion? Never 11/13/2024 Abuse Screen Answer Date Recorded Feels Unsafe at Home or Work/School no 11/13/2024 Feels Threatened by Someone no 11/2024 Does Anyone Try to Keep You From Having Contact with Others or Doing Things Outside Your Home? no 11/13/2024 Physical Signs of Abuse Present no 11/13/2024 Housing Stability Answer Date Recorded Current Living Arrangements home 11/2024 Potentially Unsafe Housing Conditions Not on avtar e 11/13/2024 Disabilities Answer Date Recorded Difficulty Concentrating, Remembering or Making Decisions no 11/13/2024 Difficulty Managing Errands Independently no 11/13/2024 Education Answer Date Recorded Help with school or training? Not on file Preferred Language Gambian 11/08/2024 Comments No Sex and Gender Information Value Date Recorded Sex Assigned at Female 05/31/2024 9:40 AM EDT Legal Sex Female 2:57 PM EDT Gender Identity Not on file Sexual Orientation Not on file documented as of this encounter Last Filed Vital Signs Vital Sign Reading Time Taken Comments Blood Pressure 130/78 12/24/2024 12:37 PM EDT Pulse - - Temperature - - Respiratory Rate - - Oxygen Saturation - - Inhaled Oxygen Concentration - - Weight 94.9 kg (209 lb 3.2 oz) 12/24/2024 12:37 PM EDT Height 172.7 cm (5' 7.99 ) 12/24/2024 12:37 PM E DT Body Mass Index 31.82 12/24/2024 12:37 PM EDT documented in this encounter Progress Notes * Angie Alvarenga MD - 12/24/2024 11:50 AM EDT Images from the original note were not included. OBGYN Postoperative Exam Note Subjective Chief Complaint Patient presents with Post-op Problem visit Genoveva Gil is a 44 y.o. year old presenting to be seen for a post-operative problem visit visit. Patient underwent a TLH with BS on 11/13/24. Currently she reports upper abdominal bloating. States she feels okay in the mornings but as the day progresses the upper abdominal bloating anddiscomfort increases. She states it feels like she has a bowling ball strapped around her waist. She denies any vomiting, diarrhea or constipation. She denies any pain just a uncomfortable feeling. She reports nausea for two days last week. She just wants to ensure this is normal. She is almost 6 weeks post op. She also reports some flushing of her face. She reports that her urine smells odd- like popcorn . She would like her urine checked and sent for culture. She is andrew po well. She reports normal soft daily BMS, sometimes BID. She has noted heartburn and reflux. OTHER THINGS SHE WANTS TO DISCUSS TODAY: Nothing else The following portions of the patient's history were reviewed and updated as appropriate:current medications and allergies Objective BP 130/78 Ht 172.7 cm (67.99 ) Wt 94.9 kg (209 lb 3.2 oz) LMP (LMP Unknown) BMI 31.82 kg/m?? General: well developed; well nourished no acute distress mentation appropriate Abdomen: soft, non-tender; no masses No peritoneal signs Pelvis: Not performed. Assessment S/P TLH/BS Problems Addressed this Visit None Visit Diagnoses Heartburn - Primary Relevant Medications pantoprazole (Protonix) 20 MG EC tablet Postoperative follow-up Bloating Relevant Medications pantoprazole (Protonix) 20 MG EC tablet Other Relevant Orders CBC & Differential Comprehensive Metabolic Panel Lipase Abnormal urine odor Relevant Orders Urine Culture - Urine, Urine, Clean Catch Diagnoses Codes Comments Heartburn - Primary ICD-10-CM: R12 ICD-9-CM: 787.1 Postoperative follow-up ICD-10-CM: Z09 ICD-9-CM: V67.00 Bloating ICD-10-CM: R14.0 ICD-9-CM: 787.3 Abnormal urine odor ICD-10-CM: R82.90 ICD-9-CM: 791.9 Plan Patient currently 6 weeks postop from total laparoscopic hysterectomy with bilateral salpingectomy.She had been doing well until recently she is experiencing upper abdominal bloating, heartburn and reflux and feeling of fullness in the upper and at times lower abdomen. She reports normal p.o. intake and is voiding and having normal regular soft bowel movements. She has been afebrile. Her abdominal exam is benign. Given her heartburn reflex and primarily epigastric symptoms we will begin her donald PPI and see if this helps. We will proceed with lab evaluation today. Patient also reporting abnormal odor to her urine. We will send urine culture. She denies any dysuria urgency frequency. The importance of keeping all planned follow-up and taking all medications as prescribed was emphasized. Return for Next scheduled follow up. New Medications Ordered This Visit Medications pantoprazole (Protonix) 20 MG EC tablet Sig: Take 2 tablets by mouth Daily. Dispense: 30 tablet Refill: 1 Angie Alvarenga MD 12/24/2024 documented in this encounter Plan of Treatment Scheduled Procedures Name Priority Associated Diagnoses Date/Ti me TOTAL LAPAROSCOPIC HYSTERECT KOKI BILATERAL SALPINGECTOMY Menorrhagia with irregular cycle Abnormal uterine bleeding (AUB) documented as of this encounter Procedures Procedure Name Priority Date/Time Associated Diagnosis Comments CBC AND DIFFERENTIAL Routine 12/24/2024 1:06 PM EDT Bloating LIPASE Routine 12/24/2024 1:06 PM EDT Bloating COMPREHENSIVE METABOLIC PANEL Routine 12/24/2024 1:06 PM EDT Bloating URINE CULTURE Routine 12/24/2024 1:00 PM EDT Abnormal urine odor documented in this encounter Results * Lipase (12/24/2024 1:06 PM EDT) Lipase 33 14 - 72 U/L [facility] Blood 12/24/2024 1:06 PM EDT 12/24/2024 Narrative [facility] - 12/25/2024 8:12 AM EDT Performed at: 01 - [facility] [address], [place], [place] [id number] Seamless Tube Mill Operator: Surendra Lee PhD, Phone: [phone] Patient Fasting: N us Angie Alvarenga MD LAB BLOOD ORDERABLES Final Resul t [facility] ([facility]) [address] [place] [address], [facility] [address] [place] [address], * (ABNORMAL) Comprehensive Metabolic Panel (12/24/2024 1:06 PM EDT) Glucose 83 70 - 99 mg/dL [facility] BUN 12 6 - 24 mg/dL [facility] Creatinine 0.66 0.57 - 1.00 mg/dL [facility] EGFR Result 112 >59 mL/min/1.7 3 [facility] BUN/Creatinine Ratio 18 9 - 23 [facility] Sodium 139 134 - 144 mmol/L [facility] Potassium 4.4 3.5 - 5.2 mmol/L [facility] Chloride 101 96 - 106 mmol/L [facility] Total CO2 24 20 - 29 mmol/L [facility] Calcium 9.7 8.7 - 10.2 mg/dL [facility] Total Protein 7.7 6.0 - 8.5 g/dL [facility] Albumin 4.8 3.9 - 4.9 g/dL [facility] Globulin 2.9 1.5 - 4.5 g/dL [facility] Total Bilirubin 0.3 0.0 - 1.2 mg/dL [facility] Alkaline Phosphatase 64 41 - 116 IU/L [facility] AST (SGOT) 24 0 - 40 IU/L [facility] ALT (SGPT) 37(H) 0 - 32 IU/L [facility] Blood 12/24/2024 1:06 PM EDT 12/24/2024 Narrative [facility] ([facility]) - 12/25/2024 7:10 AM EDT Performed at: 01 - [facility] [address] [place], [place] [id number] [employer] Operator: Surendra Lee PhD, Phone: [phone] Patient Fasting: N us Angie Alvarenga MD LAB BLOOD ORDERABLES Final Resul t [facility] ([facility]) [address] [place] [address], [facility] [address] [place] [address], * CBC & Differential (12/24/2024 1:06 PM EDT) WBC 9.6 3.4 - 10.8 x10E3/uL [facility] RBC 4.72 3.77 - 5.28 x10E6/uL [facility] Hemoglobin 14.0 11.1 - 15.9 g/dL [facility] Hematocrit 42.2 34.0 - 46.6 % [facility] MCV 89 79 - 97 fL [facility] MCH 29.7 26.6 - 33.0 pg [facility] MCHC 33.2 31.5 - 35.7 g/dL [facility] RDW 12.4 11.7 - 15.4 % [facility] Platelets 328 150 - 450 x10E3/uL [facility] Neutrophil Rel % 61 Not Estab. % [facility] Lymphocyte Rel % 30 Not Estab. % [facility] Monocyte Rel % 6 Not Estab. % [facility] Eosinophil Rel % 2 Not Estab. % [facility] Basophil Rel % 1 Not Estab. % [facility] Neutrophils Absolute 5.9 1.4 - 7.0 x10E3/uL [facility] Lymphocytes Absolute 2.9 0.7 - 3.1 x10E3/uL [facility] Monocytes Absolute 0.5 0.1 - 0.9 x10E3/uL [facility] Eosinophils Absolute 0.2 0.0 - 0.4 x10E3/uL [facility] Basophils Absolute 0.1 0.0 - 0.2 x10E3/uL [facility] Immature Granulocyte Rel % 0 Not Estab. % [facility] Immature Grans Absolute 0.0 0.0 - 0.1 x10E3/uL [facility] Blood 12/24/2024 1:06 PM EDT 12/24/2024 Narrative [facility]) - 12/25/2024 7:10 AM EDT Performed at: 01 - [facility] [id number] [employer] Operator: Surendra Lee PhD, Phone: [phone] Patient Fasting: N us Angie Alvarenga MD LAB BLOOD ORDERABLES Final Resul t Performing Organization Address City/[facility]/ZIP Co de Phone Number [facility] ([facility]) [address] [place] [address], [place] [phone] [facility] [address] [place] [address], [place] [phone] * Urine Culture - Urine, Urine, Clean Catch (12/24/2024 1:00 PM EDT) Urine Culture Final report [facility] Result 1 Comment [facility] Comment: Culture shows less than 10,000 colony forming units of bacteria per milliliter of urine. This colony count is not generally considered to be clinically significant. Urine Urine specimen obtained by clean catch procedure / Unknown 12/24/2024 1:00 PM EDT 12/24/2024 Comment:FIONA Jay [facility] ([facility]) - 12/26/2024 6:10 AM EDT Performed at: 01 - [facility] [address] [place] [id number] [employer] Mill Operator: Surendra Lee PhD, Phone: [phone] Patient Fasting: N Angie Alvarenga MD MICROBIOLOGY - GENERAL ORDERABLE S Final Result Performing Organization Address City/[facility] Co de Phone Number [facility] [address] [place] [address], [place] [phone] [facility] [address] [place] [address], [place] [phone] documented in this encounter Visit Diagnoses Diagnosis Heartburn- Primary Postoperative follow-up Follow-up examination, following unspecified surgery Bloating Flatulence, eructation, and gas pain Abnormal urine odor Other nonspecific finding on examination of urine documented in this encounter Care Teams C.O.D. Audit Clerk Relationship Specialty Start Date End Date Ruby Beaulieu PA [address] [place] [address] PCP - General Physician Plate Shear Operator 11/26/24 documented as of this encounter
--- OUTSIDE RECORDS SUMMARY | 2025-01-07 11:20 | XMS_ITS | Encounter Summary ---
[facility] Address [address] [place] [address] Care Team Providers Care Electrician Substation Supervisor Name Role Phone Ruby Beaulieu Primary Care Provider [phone] Reason for Referral * Diagnostic Imaging (Routine) - Closed Specialty Diagnoses / Procedures Referred By Contac t Referred To Contact Diagnoses Dense breasts Procedures US Breast Bilateral Complete US Breast Bilateral Complete Angie Alvarenga MD [address] [address] Phone: tel: fax: [facility] [address] [place] [address] [place] [address] Phone: tel: fax: Referral ID Status Reason Start Date Expiration Date Visits Re quested Visits Authorized [id number] Closed 01/07/2025 04/08/2026 1 1 * Diagnostic Imaging (Routine) - Closed Specialty Diagnoses / Procedures Referred By Contac t Referred To Contact Diagnoses Breast cancer screening by mammogram Procedures Mammo Screening Digital Tomosynthesis Bilateral With CAD Angie Alvarenga MD 1700 [facility] [address] [place] [address] Phone: tel: fax: [facility] [address] [place] [address] Phone: tel: fax: Referral ID Status Reason Start Date Expiration Date Visits Re quested Visits Authorized [id number] Closed 01/07/2025 04/08/2026 1 1 Reason for Visit * Reason Comments Post-op Encounter Details Date Type Department Care Team (Late st Contact Info) Description 01/07/2025 11:20 AM EST Office Visit [facility] OBGYN [address] [place] [address] Angie Alvarenga MD 17[address] [facility] [address] [place] [address] Postoperative follow-up (Primary Dx); Breast cancer screening by mammogram; Dense breasts Social History Tobacco Use Types Packs/Day Years [...] or training? Not on file Preferred Language Kuwaiti 11/08/2024 Comments No Sex and Gender Information Value Date Recorded Sex Assigned at Female 05/31/2024 9:40 AM EDT Legal Sex Female 2:57 PM EDT Gender Identity Not on file Sexual Orientation Not on file documented as of this encounter Last Filed Vital Signs Vital Sign Reading Time Taken Comments Blood Pressure 118/74 01/07/2025 11:25 AM EST Pulse - - Temperature - - Respiratory Rate - - Oxygen Saturation - - Inhaled Oxygen Concentration - - Weight 96.2 kg (212 lb) 01/07/2025 11:25 AM EST Height 172.7 cm (5' 7.99 ) 01/07/2025 11:[address] Body Mass Index 32.24 01/07/2025 11:25 AM EST documented in this encounter Progress Notes * Angie Alvarenga MD - 01/07/2025 11:20 AM EST Images from the original note were not included. OBGYN Postoperative Exam Note Subjective Chief Complaint Patient presents with Post-op Genoveva Lopez Box is a 44 y.o. year old presenting to be seen for her post-operative visit.Currently she reports no problems with eating, bowel movements, voiding, or wound drainage and painis well controlled. The pathology results from her procedure are in Genoveva's record and are benign. OTHER THINGS SHE WANTS TO DISCUSS TODAY: Nothing else - needs order for mammogram- was due in Dec 2024. The following portions of the patient's history were reviewed and updated as appropriate:current medications and allergies Objective BP 118/74 Ht 172.7 cm (67.99 ) Wt 96.2 kg (212 lb) LMP (LMP Unknown) BMI 32.24 kg/m?? General: well developed; well nourished no acute distress mentation appropriate Abdomen: soft, non-tender; no masses incisions are clean, dry, intact, without drainage, and well healed Pelvis: Clinical staff was present for exam External genitalia: normal appearance of the external genitalia including Bartholin's and Mabscott's glands. Vaginal: normal pink mucosa without prolapse or lesions. foreign object present (lapra-ty loose in vagina, removed today); cuff intact, well healed and excellent support Adnexa: normal bimanual exam of the adnexa. Assessment S/P TLH/BS Problems Addressed this Visit None Visit Diagnoses Postoperative follow-up - Primary Breast cancer screening by mammogram Relevant Orders Mammo Screening Digital Tomosynthesis Bilateral With CAD Dense breasts Relevant Orders US Breast Bilateral Complete Diagnoses Codes Comments Postoperative follow-up - Primary ICD-10-CM: Z09 ICD-9-CM: V67.00 Breast cancer screening by mammogram ICD-10-CM: Z12.31 ICD-9-CM: V76.12 Dense breasts ICD-10-CM: R92.30 ICD-9-CM: 793.82 Plan May resume intercourse. Does heavy lifting at work, so will limit to no more than 20 pounds for 4 more weeks. May resume exercise. The importance of keeping all planned follow-up and taking all medications as prescribed was emphasized. Return for Annual physical. Angie Alvarenga MD 01/07/2025 documented in this encounter Plan of Treatment Scheduled Orders Name Type Priority Associated Diagnoses Orde r Schedule Mammo Screening Digital Tomosynthesis Bilateral With CAD Imaging Routine Breast cancer screening by mammogram Expected: 05/02/2025, Expires: 07/06/2025 US Breast Bilateral Complete Imaging Routine Dense breasts Expected: 04/18/2025, Expires: 07/06/2025 Scheduled Procedures Name Priority Associated Diagnoses Date/Ti me TOTAL LAPAROSCOPIC HYSTERECT KOKI BILATERAL SALPINGECTOMY Menorrhagia with irregular cycle Abnormal uterine bleeding (AUB) documented as of this encounter Visit Diagnoses Diagnosis Postoperative follow-up- Primary Follow-up examination, following unspecified surgery Breast cancer screening by mammogram Dense breasts Inconclusive mammogram documented in this encounter Care Teams Electrician Substation Supervisor Relationship Specialty Start Date End Date Ruby Beaulieu PA [address] [place] [address] PCP - General Physician Office Machine Technician 11/26/24 documented as of this encounter
--- NOTE | 2025-02-19 07:55 | US_ITS ---
PROCEDURE INFORMATION: Exam: US Left Breast, Complete US Right Breast, Complete MG Bilateral Screening 3D Mammography Exam date and time: 02/19/2025 8:30 AM Age: 44 years old Clinical indication: Screening. Her maternal grandmother had breast cancer. TECHNIQUE: Imaging protocol: Complete ultrasound of all four quadrants of the left breast and the retroareolar regions, including ultrasound of the axilla when performed. Complete ultrasound of all four quadrants of the right breast and the retroareolar regions, including ultrasound of the axilla when performed. Bilateral Screening tomosynthesis and 2D mammography including computer-aided detection (CAD) when performed. COMPARISON: MG MM DIG SCREENING MAMM BI W/CAD 12/14/2023 3:08 PM MG MM DIG SCREENING MAMM BI W/CAD 12/01/2022 3:08 PM US BREAST LT COMPLETE 12/30/2021 3:01 PM FINDINGS: MAMMOGRAPHY: Breast composition: The breasts are heterogeneously dense, which may obscure small masses. Mass: No suspicious mass. Architectural distortion: None. Calcifications: No suspicious calcifications. Asymmetric density: None. Skin thickening: None. Axillary adenopathy: None. ULTRASOUND: Ultrasound images of both breasts including the retroareolar regions, all 4 quadrants and the axilla demonstrates on the left at 2 o'clock 4 cm from the nipple, almost anechoic slightly lobulated vascular mass measuring 0.5 x 0.3 x 0.4 cm measured 0.6 x 0.4 x 0.6 cm on 12/30/2021, compatible with a complicated clustered cysts - the deeper part of this was measured separately at 0.3 x 0.2 cm also appears unchanged since 12/31/2019; on the left, at 7 o'clock 5 cm from the nipple, echogenic avascular mass measuring 0.5 x 0.6 x 0.3 cm, likely a lipoma; otherwise no sonographic findings demonstrated. No axillary adenopathy demonstrated. IMPRESSION: Suggest six-month follow-up left sonography for probably benign mass, likely lipoma on the left at 7 o'clock, unless otherwise clinically indicated. No mammographic evidence of malignancy. Annual screening is recommended unless otherwise clinically indicated. ASSESSMENT: BI-RADS Category 3: Probably benign.
--- OUTSIDE RECORDS SUMMARY | 2025-02-19 07:56 | XMS_ITS | Encounter Summary ---
[facility] Organization [facility] Address [address] [place] [address] Care Team Providers Care Soa Architect Name Role Phone Ruby Beaulieu Primary Care Provider [phone] Encounter Details Date Type Department Care Team (Latest Contact Info) Description 12/24/2024 Travel Social History Tobacco Use Types Packs/Day Years [...] or training? Not on file Preferred Language Venezuelan 11/08/2024 Comments No Sex and Gender Information Value Date Recorded Sex Assigned at Female 05/31/2024 9:40 AM EDT Legal Sex Female 2:57 PM EDT Gender Identity Not on file Sexual Orientation Not on file documented as of this encounter Plan of Treatment Scheduled Procedures Name Priority Associated Diagnoses Date/Ti me TOTAL LAPAROSCOPIC HYSTERECT KOKI BILATERAL SALPINGECTOMY Menorrhagia with irregular cycle Abnormal uterine bleeding (AUB) documented as of this encounter Visit Diagnoses Not on filedocumented in this encounter Care Teams Soa Architect Relationship Specialty Start Date End Date Ruby Beaulieu PA [address] [place] [address] PCP - General Physician Big 6 Dealer 11/26/24 documented as of this encounter
--- OUTSIDE RECORDS SUMMARY | 2025-02-19 07:56 | XMS_ITS | Encounter Summary ---
[facility] Address [address] [place] [address] Care Team Providers Care Latrine Cleaner Name Role Phone Ruby Beaulieu Primary Care Provider [phone] Encounter Details Date Type Department Care Team (Late st Contact Info) Description 11/13/2024 Prep for Surgery [facility] ONLY [address] [place] [address] Angie Alvarenga MD 1700 [facility] [address] [place] [address] Social History Tobacco Use Types Packs/Day Years [...] or training? Not on file Preferred Language Greek 11/08/2024 Comments No Sex and Gender Information Value Date Recorded Sex Assigned at Female 05/31/2024 9:40 AM EDT Legal Sex Female 2:57 PM EDT Gender Identity Not on file Sexual Orientation Not on file documented as of this encounter Functional Status * Question Answer Date of Assessment Author 1. Wish to be (Past 1 Month) No 11/13/2024 7:01 AM Radha Ruiz RN 2. Non-Specific Active Suici hoang Thoughts (Past 1 Month) No 11/13/2024 7:01 AM [facility] Savannah Mcmahan RN * Calculated C-SSRS Risk Score (Lifetime/Recent) Answer Date of Assessment Author No Risk Indicated 11/13/2024 7:01 AM Radha Ruiz RN * [place] Suicide Severity Rating Scale (Screener/Recent Self-Report) Question Answer Date of Assessment Author 6. Suicidal Behavior (Lifetime) No 7:01 AM Radha Ruiz RN documented as of this encounter Plan of Treatment Scheduled Procedures Name Priority Associated Diagnoses Date/Ti me TOTAL LAPAROSCOPIC HYSTERECT KKOI BILATERAL SALPINGECTOMY Menorrhagia with irregular cycle Abnormal uterine bleeding (AUB) documented as of this encounter Visit Diagnoses Not on filedocumented in this encounter Care Teams Latrine Cleaner Relationship Specialty Start Date End Date Ruby Beaulieu PA [address] [place] [address] PCP - General Physician Nurse Infection Control 11/26/24 documented as of this encounter
--- OUTSIDE RECORDS SUMMARY | 2025-02-19 07:56 | XMS_ITS | Continuity of Care Document ---
Author Organization [place] - [employer], [facility] Address [address] [place] [address] Assessment No assessment recorded. Plan of Treatment Reminders Order Date Submit Date Provider Last Modified By Organization Details Last Modified Time Details Appointments None recorded. Lab None recorded. Referral None recorded. Procedures None recorded. Surgeries None recorded. Imaging None recorded. Medication Orders lorazepam 1 mg tablet 2024 025 [facility], [address] [place] [address], [id number], 16:56:21 ciprofloxac in 500 mg tablet 2024 025 [facility], [address] [place] [address], [id number], 16:52:29 Adipex-P 37.5 mg tablet 2024 025 [facility], [address] [place] [address], [address], 16:56:22 Patient TargetsNo targets recorded. Patient Instructions Encounter Date Encounter Id Patient Instructions Last Modified By Organization Details Last Modified Time 01/15/2025 [id number] body mass index: care instructions [email or web address] Not available 01/15/2025 16:56:15 learning about healthy weight [email or web address] Not available 01/15/2025 16:56:16 Reason for Referral None Reported. Problems Name Problem SNOMED Code Status Onset Date Resolution Date Notes Provider Name and Address Organization Details Recorded Time Generalized anxiety disorder 82361187 Active 2023 JESS Carrion [address] [place] [address], [phone], [employer] 11:58:24 Localized eruption of skin 980892352 Completed 202304/23/2024 JESS Carrion [address] [place] [address], [phone], [employer] 11:58:44 Herpes zoster 4403310 Completed 202304/23/2024 JESS Carrion [address] [place] [address], [phone] 8, [employer] 11:58:40 Acute sinusitis 80189517 Completed 202304/23/2024 JESS Carrion [address] [place] [address], [phone] 8, [employer] 11:58:29 Cough 50131861 Completed 202404/23/2024 JESS Carrion [address] [place] [address], [phone] 8, [employer] 11:58:35 Weight increased 429111593 Active 2024 JESS Carrion [address] [place] [address], [phone] 8, [employer] 10:53:37 Recurrent urinary tract infection 778470966 Active 2024 JESS Carrion [address] [place] [address], [phone] 8, [employer] 16:52:06 Problem Notes None recorded. Procedures Surgical History Date Name Laterality Status Provider Name and Address Organization Details Recorded Time 06/05/19 25 Date of Last Pap Smear completed [employer] 08/24/2024 10:33:28 12/13/19 24 Most Recent Mammogram completed [employer] 12/16/2023 11:13:09 [facility] 11:13:11 Laparoscopy completed [facility] [employer] 12/16/2023 11:15:45 Partial Hysterectomy completed [facility] [email or web address] [facility] 01/15/2025 16:35:19 Imaging Results None recorded. Procedure Notes None recorded. Medical Equipment None Reported. Allergies Allergen ID Allergen Name Allergen Category Reaction Reaction Severity Criticality Documentation Date Start Date Code Code System Note Provider Name and Address Organization Details Recorded Time 97866 Product containin g penicilli n (product) medicatio n rash respirato ry distress Not available Not available Not available 12/16/[address] [facility] [email or web address] [facility] 4 11:13:06 62347 cephalexi n medicatio n swelling Not available [facility] 01/21/20252020 2231 RxNorm Jersonu e dinesh ing - liqu id form (raj ent repor ts she has taken the pill form in the past and silvia ated it) Not Available lb - External Data Service - prod 5 11:38:55 Medications Name Sig Start Date Stop Date Status Note LastModified by Organization Details LastModified Time Prescriptio n - Prior Authorizati on Request active Not Available Not Available N ot Available prednisone 10 mg tablet 12/15 completed Not Available Not Available Not Available azithromyci n 250 mg tablet TAKE 2 TABLETS (500 MG) BY ORAL ROUTE ONCE DAILY FOR 1 DAY THEN 1 TABLET (250 MG) BY ORAL ROUTE ONCE DAILY FOR 4 DAYS 03/28 completed Not Available Not Available Not Available ibuprofen 800 mg tablet TAKE 1 TABLET BY MOUTH EVERY 8 HOURS NEEDED FOR MODERATE PAIN 08/20 completed Not Available Not Available Not Available fluconazole 150 mg tablet 12/15 completed Not Available Not Available Not Available valacyclovi r 1 gram tablet TAKE 1 TABLET BY MOUTH EVERY 12 HOURS DIRECTED FOR 10 DAYS FOR SHINGLES. 03/28 completed Not Available Not Available Not Available Adipex-P 37.5 mg tablet Take 1 tablet every day by oral route for 30 days. 2024 active Not Available Not Available Not Avai lable Medrol (Sukumar) 4 mg tablets in a dose pack Take 1 dose pk every day by oral route as directed for 6 days, for rash. 02/15 completed Not Available Not Available Not Available ciprofloxac in 500 mg tablet Take 1 tablet every day by oral route for 30 days. 2024 active Not Available Not Available Not Avai lable diazepam 2 mg tablet TAKE 1 TABLET BY MOUTH AT BEDTIME NIGHTLY NEEDED FOR ANXIETY 12/15 completed Not Available Not Available Not Available phenazopyri dine 100 mg tablet 12/15 completed Not Available Not Available Not Available lorazepam 1 mg tablet Take 1 tablet twice a day by oral route as directed for 30 days, for anxiety. 2024 active Not Available Not Available Not Avai lable levofloxaci n 500 mg tablet 12/15 completed Not Available Not Available Not Available nitrofurant oin monohydrate /macrocryst als 100 mg capsule TAKE 1 CAPSULE BY MOUTH TWICE DAILY FOR 7 DAYS 01/15 completed Not Available Not Available Not Available Lo Loestrin Fe 1 mg-10 mcg (24)/10 mcg (2) tablet TAKE 1 TABLET BY MOUTH ONCE DAILY 08/20 completed Not Available Not Available Not Available Slynd 4 mg (28) tablet TAKE 1 TABLET BY MOUTH ONCE DAILY 01/15 completed Not Available Not Available Not Available Wegovy 0.25 mg/0.5 mL subcutaneou s pen injector Inject 0.25 mg every week by subcutane ous route for 28 days. 01/15 completed Not Available Not Available Not Available Wegovy 0.5 mg/0.5 mL subcutaneou s pen injector Inject 0.5 mg every week by subcutane ous route for 28 days. 01/15 completed Not Available Not Available Not Available Vitals Date Recorded Body height Body mass index (BMI) Body weight Oxygen saturation Heart rate Body temperature Systolic And Diastolic Provider Name and Address Organization Details Last Updated DateTime 170.18 cm 32.8 kg/m2 60896.5 2 g 99 % 80 /min 97.7 [degF] 134/84 mm[Hg] [employer] 16:39:44 Social History Question Answer Notes LastModified by Organizat ion Details LastModified Time Tobacco Smoking Status Never Smoker [facility] [employer] 12/16/2023 11:13:10 Do You Have An Advance Directive? No Information not available 12/16/2023 Is Your Home Air Conditioned? Yes Information not available 12/16/2023 If You Are , What Was Your Level Of Alcohol Consumption Prior To ? None Information not available 12/16/2023 Do You Wear A Helmet When Biking? No Information not available 12/16/2023 Are You Blind Or Do You Have Difficulty Seeing? No Information not available 12/16/2023 What Is Your Level Of Caffeine Consumption? None Information not available 12/16/2023 Are You A Caregiver? No Information not available 01/15/2025 What Type Of Parts Inspector Do You Use? None Information not available 12/16/2023 In The 14 Days Before Symptom Onset, Have You Had Close Contact With A Laboratory-confir med COVID-19 While That Case Was Ill? No Information not available 12/16/2023 In The 14 Days Before Symptom Onset, Have You Had Close Contact With A Person Who Is Under Investigation For COVID-19 While That Person Was Ill? No Information not available 12/16/2023 Have You Been To An Area Known To Be High Risk For COVID-19? No Information not available 12/16/2023 Are You Deaf Or Do You Have Serious Difficulty Hearing? No Information not available 12/16/2023 What Type Of Diet Are You Following? REGULAR Information not available 12/16/2023 Who Is Your Employer? [employer] Information not available 12/16/2023 How Many Days Of Moderate To Strenuous Exercise, Like A Brisk Walk, Did You Do In The Last 7 Days? 3 Information not available 01/15/2025 Have There Been Any Changes To Your Family Or Social Situation? No Information no t available 12/16/2023 Are There Any Guns Present In Your Home? No Information not available 12/16/2023 Which Of Your Hands Is Dominant? Right Information not available 12/16/2023 Do You Engage In Moderate/heavy Exercise (e.g. Brisk Walk, Jogging, Strength Training, Etc)? Yes Information not available 01/15/2025 What Is Your Home Situation? Both Parents Information not available 12/16/2023 Where Do You Live? [facility] Information not available 01/15/2025 Do You Have A Medical Power Of Pastoral Ministries Professor? No Information not available 12/16/2023 What Was The Date Of Your Most Recent Tobacco Screening? 01/15/2025 Information not available 01/15/2025 Have You Ever Been Counseled For Unhealthy Alcohol Use? No Information not available 12/16/2023 Do You Have Any Pets? Yes Information not available 12/16/2023 Do You Use Protection During Sex? No Information not available 12/16/2023 What Is Your Relationship Status? Information not available 12/16/2023 Have You Repeated Any Grades? No Information not available 12/16/2023 Do You Wear A Seatbelt When Driving Or As A Passenger? Yes Information not available 01/15/2025 Do You Use Your Seat Belt Or Car Seat Routinely? Yes Information not available 12/16/2023 Are You Sexually Active? Yes Information not available 12/16/2023 Do You Have Any Siblings? Yes Information not available 12/16/2023 Do You Have Smoke And Carbon Monoxide Detectors In Your Home? Yes Information not available 12/16/2023 Are You Passively Exposed To Smoke? No Information no t available 12/16/2023 Are There Any Smokers In Your House? No Information not available 12/16/2023 Do You Participate In Social Media? Yes Information not available 03/29/2024 Do You Use Sunscreen Routinely? Yes Information not available 12/16/2023 Has Tobacco Cessation Counseling Been Provided? No Information not available 12/16/2023 Have You Recently Traveled Abroad? No Information not available 12/16/2023 Do You Have Difficulty Walking Or Climbing Stairs? No Information not available 12/16/2023 Are You Currently In School? No Information not available 12/16/2023 What Contraceptive Method Was Reported At Start Of This Visit? None Information not available 01/15/2025 Do You Feel Safe In Your Home? Yes Information not available 01/15/2025 Do You Have Any Dietary Restrictions? No Information not available 12/16/2023 How Many Days In The Past Year Have You Consumed 4 Or More Drinks? 0 Information no t available 12/16/2023 What Is Your Reason For Having No Contraceptive Method At Start Of This Visit? Other Information not available 01/15/2025 Sex: Unknown Functional Status Question Answer Note LastModified by [employer] ion Details LastModified Time Do you use any illicit or recreational drugs? No Information not available 12/16/2023 Do you feel safe in your relationship? Yes Information n ot available 01/15/2025 Do you or have you ever used any other forms of tobacco or nicotine? No Information not available 12/16/2023 What is your level of alcohol consumption? Occasional Information not available 12/16/2023 Are you currently employed? Yes Information not available 12/16/2023 Do you have transportation difficulties? No Information not available 12/16/2023 Are you able to walk independently without assistance or assistive devices? [employer] Information not available 12/16/2023 Do you have difficulty doing errands alone? No Information not available 12/16/2023 Are you able to care for yourself independently? Yes Information not available 12/16/2023 Do you have difficulty dressing, bathing, grooming, or toileting? No Information not available 12/16/2023 What is your exercise level? Moderate Information not available 12/16/2023 Mental Status Question Answer Note LastModified by OR [employer] ion Details LastModified Time Do you feel stressed (tense, restless, nervous, or anxious, or unable to sleep at night)? SN61407-2 Information not available 03/29/2024 Do you have difficulty concentrating, remembering or making decisions? No Information no t available 12/16/2023 Are you or have you been involved with bullying? No Information not available 12/16/2023 Family History Relationship Description Onset Age of this Age Resolved Age Notes LastModified by Organization Details LastModified Time Mother Hypercholest erolemia Not available 2023 11:13:06 Mother Arthritis Not available 12/16/2023 11:13:06 Mother Hypertensive disorder Not available 2023 11:13:06 Maternal Grandmother Malignant neoplasm of breast Not available 2023 11:13:06 Maternal Grandmother Malignant neoplasm of colon Not available 2023 11:13:06 Father Hypercholest erolemia Not available 2023 11:13:06 Father Anxiety disorder Not available 2023 11:13:06 Father Arthritis Not available 12/16/2023 11:13:06 Father Hypertensive disorder Not available 2023 11:13:06 Medical History Condition Response Coronary Artery Disease N Other N Gout N Kidney Stones N Blood Diseases N Hyperthyroidism N Breast Cancer N Blood Transfusion N Emergency room visit since last appointm ent. N Hypothyroidism N Lung Disease N Dermatologic Disorders N COPD N Depression N Developmental or Behavioral Disorders N Defects or Inherited Disease N Breast Problem N Difficulty Swallowing N Anesthesia Complications N History of STI N Meniere's disease N Anxiety Disorder Y Muscle, Joint, or Bone Problems N Autoimmune disease N Vision or Eye Problems N Arthritis N Polyps N Infertility N Mental Disorder N Congenital Anomalies N Acid Reflux (GERD) N Cancer N Stroke N Neurologic/Epilepsy N Endometriosis N Bladder or Kidney Problems Y High Cholesterol Y Liver Disease N Psychiatric/Mental Health Condition N Organ Transplant N Fibromyalgia N Dialysis N Schizophrenia N Headaches N Kidney Disease N Allergies/Hayfever N Heart Problems N Ear or Hearing Problems N Hospitalizations N Learning Disorder N Artificial Joints N Thyroid Problems N GI Problems N Acne N ADD/ADHD N Eating Disorder N Anemia N Constipation N Mental Illness N Ovarian Cancer N Diabetes N Bedwetting N Hepatitis/Liver Disease N Tuberculosis N Eczema N Diverticulitis N Abuse/Domestic Violence N Asthma N Trauma/Violence N Substance Abuse N Reflux/GERD N Depression/ depression N Hepatitis N Heart Disease N Pulmonary Embolism N Tourette Syndrome N Pre-Eclampsia N Hypertension N Chronic Ear Infections N Osteoporosis N Chicken Pox N Autism Spectrum Disorder (ASD) N Thrombophilias N Gynecological History Statement/Question Response Abnormal Pap N Flow Heavy Date of LMP 08/10/2024 On BCP's at Conception? Y STIs/STDs N HPV Vaccine N Duration of Flow (days) 6 Most Recent Mammogram 12/13/2023 Age at Menarche 14 Current Control Method BCPs Age at First Child 22 Frequency of Cycle (Q days) 9 Menses Monthly N Date of Last Pap Smear 06/04/2024 Sexual Problems? N LMP Approximate Obstetrics History GPAL:G 0 P 0 0 0 0 Immunizations Vaccine Type Date Status Note Provider Nam e and Address Organization Details Recorded Time COVID-19 vaccine, vector-nr, rS-Ad26, PF, 0.5 mL 06/11/2020 completed CICI Molina - [employer] [employer] 02/16/2024 15:01:01 Past Encounters Encounter ID Performer Location Encounter Start Date Encounter Closed Date Diagnosis/Indication Diagnosis SNOMED-CT Code Diagnosis ICD10 Code Diagnosis IMO Codes Diagnosis Note [id number] JESS Carrion [facility] [address] [place] [address] 01/15/2025 16:29:09 01/15/2025 16:57:14 Recurrent urinary tract infection 741471903 N39.0 1579442 Generalize d anxiety disorder 72681891 F41.1 Body mass index 30+ - obesity 899647427 Z68.32 522424 Health Concerns Section Related Observation LastModified by Organization Detai ls LastModified Time None Recorded Concern Status LastModified by Organization Details LastModified Time None Recorded Payers Encounter Date Sequence Insurance Name Policy Number Policy Rico Covered Member ID Rico Member ID Guarantor Name 01/15/2025 1 BCBS-[employer]: JAMA BCASHLEE OF [place] [id number] Genoveva Box [id number] Genoveva Box Notes Date Note Type Note Provider Name and Address Organization Details Recorded Time 01/15/2025 text/html ROS as noted in the HPI Recently had a partial hysterectomy.Has gained about 10 pounds. She is sometimes hot but she does still have her ovaries.Needs refills on her Lorazepam.Would like to try Adipex for post hysterectomy weight gainHas recurrent UTIs. Wonders if she can possibly try Cipro prophylactically. A friend does that and it works well for her. JESS Carrion [address] [place] [address], [place], [address], [facility] [employer] 01/15/2025 17:55:05 OBGyn Episode No OBEpisode recorded.
--- OUTSIDE RECORDS SUMMARY | 2025-02-19 07:56 | XMS_ITS | Encounter Summary ---
Author Organization [facility] Address [address] [place] [address] Care Team Providers Care Stock Parts Fabricator Name Role Phone Ruby Beaulieu Primary Care Provider [phone] Reason for Visit * Reason Onset Date Comments MAMMO ORDER 01/10/2025 BREAST US ORDER 01/10/2025 Encounter Details Date Type Department Care Team (Late st Contact Info) Description 01/10/2025 Telephone [facility] [address] [facility] [address] [place] [address] Angie Alvarenga MD [address] [facility] [address] [place] [id number] MAMMO ORDER; BREAST US ORDER Social History Tobacco Use Types Packs/Day Years [...] or training? Not on file Preferred Language Upper Sorbian 11/08/2024 Comments No Sex and Gender Information Value Date Recorded Sex Assigned at Female 05/31/2024 9:40 AM EDT Legal Sex Female 2:57 PM EDT Gender Identity Not on file Sexual Orientation Not on file documented as of this encounter Miscellaneous Notes * Telephone Encounter - Heavenly Santiago RegSched Rep - 01/17/2025 8:41 AM EST Provider: Angie Alvarenga MD Caller: Genoveva Lopez Female, 44 y.o., 1980 CSN: [id number] Reason for Call: PT REQ ORDER BE RE SENT OVER REG BREAST US, PT STATES FACILITY HAS NOT RECEIVED THE FAX AT THE [facility] FAX- [phone] PT REQ A RESPONSE THROUGH [employer] WHEN RESENT PT REQ THIS BE COMPLETE TODAY PLEASE SEE TE'S BELOW REG THIS * Telephone Encounter - Irlanda Ash RegSched Rep - 01/10/2025 2:11 PM EST PA initiated for breast ultrasound - awaiting fax back with determination - when it returns fax over with breast u/s order documented in this encounter Plan of Treatment Scheduled Procedures Name Priority Associated Diagnoses Date/Ti me TOTAL LAPAROSCOPIC HYSTERECT KOKI BILATERAL SALPINGECTOMY Menorrhagia with irregular cycle Abnormal uterine bleeding (AUB) documented as of this encounter Visit Diagnoses Not on filedocumented in this encounter Care Teams Stock Parts Fabricator Relationship Specialty Start Date End Date Ruby Beaulieu PA [address] [place] [address] PCP - General Physician Risk Control Officer 11/26/24 documented as of this encounter
--- OUTSIDE RECORDS SUMMARY | 2025-02-19 07:56 | XMS_ITS | Clinical Summary ---
Author Organization [facility] Address [address] [place] [address] Care Team Providers Care Nut Processing Supervisor Name Role Phone Lindy Vang Primary Care Provider Allergies Active Allergy Reactions Criticality Noted Date Comments Cephalexin Swelling High 07/30/2020 Tongue swelling Tongue swelling Penicillins Hives,Itching,Rash,S hort ness of breath,Wheezing High 07/30/2020 Statins Itching High 02/23/2023 Medications LORazepam (Ativan) 1 MG tablet Take 1 mg by mouth 1 (one) time each day. 12/13/2020 Active norethindrone ac-eth estradio (Loestrin 1.5/30, 21,) 1.5-30 MG-MCG tablet tablet 12/26/2022 Activ e levoFLOXacin (Levaquin) 500 MG tablet 07/22/2023 Active estradiol (Estrace) 0.1 MG/GM vaginal cream Insert 1 g into the vagina 2 (two) times a week. 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 High-tone pelvic floor dysfunction in female 05/2021 Resolved Problems Problem Noted Date Diagnosed Date Resolved Date Recurrent UTI 07/26/2023 11/25/2024 Social History Tobacco Use Types Packs/Day Years Used Date Smoking Tobacco: Never Passive Smoke Exposure: Never Smokeless Tobacco: Never Tobacco Cessation:Counseling Given: Not Answered Alcohol Use Standard Drinks/Week Comments Not Currently 0 (1 standard drink = 0.6 oz pure alcohol) Special occasion only if then Comments No Sex and Gender Information Value Date Recorded Sex Assigned at Not on file Legal Sex Female 8:58 PM EDT Gender Identity Not on file Sexual Orientation Not on file Last Filed Vital Signs Vital Sign Reading Time Taken Comments Blood Pressure 114/69 08/31/2023 8:51 AM EDT Pulse 85 08/31/2023 8:51 AM EDT Temperature 37.3 C (99.1 F) 08/31/2023 8:51 AM EDT Respiratory Rate 18 08/31/2023 8:51 AM EDT Oxygen Saturation 98% 08/31/2023 8:51 AM EDT Inhaled Oxygen Concentration - - Weight 93 kg (205 lb 0.4 oz) 08/31/2023 8:51 AM EDT Height 171.5 cm (5' 7.5 ) 08/31/2023 8:51 AM EDT Body Mass Index 31.64 08/31/2023 8:51 AM EDT Plan of Treatment Health Maintenance Due Date Last Done Comments [facility]-Depression Screening 1980 [facility]-HIV Screening 1980 [facility]-Hepatitis C Screening 1980 [facility]-/Child/Adol SDOH Screenings 1980 [facility]-Varicella Vaccines (1 of 2 - 13+ 2-dose series) 1994 [facility]- SDOH Screenings 08/29/1999 [facility]-Adult SDOH Screenings 08/29/1999 [facility]-DTaP,Tdap,and Td Vaccine s (1 - Tdap) 2000 [facility]-Hepatitis B Vaccines (1 of 3 - 19+ 3-dose series) 2000 [facility]-HPV/Cotest 08/29/2011 [id number] Vaccine (2 - 2024- season) 2024 06/11/2020 [facility]-Influenza Vaccine (#1) 2024 [facility]-Cervical Cancer Screening 12/22/2025 [facility]-Pap Smear 12/22/2025 12/22/2022 [facility]-Zoster Vaccines (1 of 2) 08/29/2031 [facility]-Obesity Intervention Completed 024, 07/25/2023 HPV Vaccines (No Doses Required) Completed [facility]-HIB Vaccines Aged Out No longer e ligible based on patient's age to complete this topic [facility]-Hepatitis A Vaccines Aged Out No longer eligible based on patient's age to complete this topic [facility]-IPV Vaccines Aged Out No longer e ligible based on patient's age to complete this topic [facility]-Pneumococcal Vaccine: Pediatrics (0 to 5 Years) and At-Risk Patients (6 to 49 Years) Aged Out No longer eligible b ased on patient's age to complete this topic [facility]-Rotavirus Vaccines Aged Out No lo nger eligible based on patient's age to complete this topic Insurance CICI PEREIRA [id number] ANTH Care Teams Nut Processing Supervisor Relationship Specialty Start Date End Date Lindy Vang PA [address] CICI Pereira [address] PCP - General 02/06/21
--- OUTSIDE RECORDS SUMMARY | 2025-02-19 07:56 | XMS_ITS | Clinical Summary ---
[facility] Organization [facility] Address [address] [place] [address] Care Team Providers Care Circular Gang Saw Operator Name Role Phone Ruby Beaulieu Primary Care Provider [phone] Allergies Active Allergy Reactions Criticality Noted Date Comments Cephalexin Swelling High 07/30/2020 Tongue swelling - liquid form (patient reports she has taken the pill form in the past and tolerated it) Penicillins Rash Low 07/30/2020 Statins Itching Low 02/23/2023 Medications LORazepam (ATIVAN) 1 MG tablet Take 1 tablet by mouth Every Evening. 12/13/2020 Active multivitamin with minerals (MULTIVITAMIN ADULT PO) Take 1 tablet by mouth Daily. Active ibuprofen (ADVIL,MOTRIN) 800 MG tablet Take 1 tablet by mouth Every 8 (Eight) Hours As Needed for Moderate Pain. 30 tablet 11/14/2024 10:11 AM EDT 11/14/2024 Active pantoprazole (Protonix) 20 MG EC tabletIndicatio ns:Heartburn Take 2 tablets by mouth Daily. 30 tablet 1 12/24/2024 Active Active Problems No known active problems Resolved Problems Problem Noted Date Diagnosed Date Resolved Date Menorrhagia with irregular cycle 11/13/2024 11/14/2024 Abnormal uterine bleeding (AUB) 11/08/2024 11/13/2024 Menorrhagia with irregular cycle 04/18/2024 11/13/2024 Encounters Date Type Department Care Team Description 01/10/2025 Telephone [facility]YN [address] [place] [address] Angie Jaquez MD MAMMO ORDER; BREAST US ORDER 01/07/2025 11:20 AM EST Office Visit [facility] O[facility] [address] [place] [address] Angie Jaquez MD Postoperative follow-up (Primary Dx); Breast cancer screening by mammogram; Dense breasts 01/07/2025 Telephone [facility] [place] [address] Angie Jaquez MD NEEDS A NEW BREAST U/S ORDER 01/07/2025 Travel 12/27/2024 Results Follow-Up [facility] [place] [address] Angie Jaquez MD 12/24/2024 11:50 AM EDT Office Visit [facility] [place] [address] Angie Jaquez MD Heartburn (Primary Dx); Postoperative follow-up; Bloating; Abnormal urine odor 12/24/2024 Travel 12/20/2024 Telephone [facility] PATIENT CONNECTION [facility] Central Scheduling [address] [place] [address] Angie Jaquez MD POST OPP PAIN 12/19/2024 Telephone [facility] OBGYN [address] [place] [address] Angie Jaquez MD 11/26/2024 1:44 PM EDT - 11/26/2024 11:59 PM EDT Hospital Encounter [facility] [address] [place] [address] Angie Jaquez MD Chest pain on breathing Discharge Disposition: Home or Self Care 11/26/2024 11:50 AM EDT Office Visit [facility] O[facility] [address] [address] Angie Jaquez MD Chest pain on breathing (Primary Dx); Postoperative follow-up 11/26/2024 Travel from Last 3 Months Family History Medical History Relation Name Comments Deep vein thrombosis Daughter Candido Box Factor V Leiden Pulmonary embolism Daughter Candido Box Factor V Leiden Breast cancer Maternal Grandmother Adelaida Guthrie Colon cancer Maternal Grandmother Adelaida [place] Melanoma Maternal Grandmother Adelaida Guthrie Twice Ovarian cancer Neg Hx Uterine cancer Neg Hx Relation Name Status Comments Daughter Candido Gil Maternal Grandmother Adelaida Guthrie Social History Tobacco Use Types Packs/Day Years Used Date Smoking Tobacco: Never Smokeless Tobacco: Never Tobacco Cessation:Counseling Given: Not Answered Alcohol Use Standard Drinks/Week Comments Yes 0 [...] or training? Not on file Preferred Language Montenegrin 11/08/2024 Comments No Sex and Gender Information Value Date Recorded Sex Assigned at Female 05/31/2024 9:40 AM EDT Legal Sex Female 2:57 PM EDT Gender Identity Not on file Sexual Orientation Not on file Last Filed Vital Signs Vital Sign Reading Time Taken Comments Blood Pressure 118/74 01/07/2025 11:25 AM EST Pulse 75 11/26/2024 11:48 AM EDT Temperature 37.2 C (98.9 F) 11/14/2024 7:25 AM EDT Respiratory Rate 18 11/26/2024 11:48 AM EDT Oxygen Saturation 97% 11/26/2024 11:48 AM EDT Inhaled Oxygen Concentration - - Weight 96.2 kg (212 lb) 01/07/2025 11:25 AM EST Height 172.7 cm (5' 7.99 ) 01/07/2025 11:[address] Body Mass Index 32.24 01/07/2025 11:25 AM EST Plan of Treatment Scheduled Procedures Name Priority Associated Diagnoses Date/Ti me TOTAL LAPAROSCOPIC HYSTERECT KOKI BILATERAL SALPINGECTOMY Menorrhagia with irregular cycle Abnormal uterine bleeding (AUB) Health Maintenance Due Date Last Done Comments TDAP/TD VACCINES (1 - Tdap) 2000 ANNUAL PHYSICAL 05/13/2020 HEPATITIS C SCREENING 05/13/2020 INFLUENZA VACCINE 10/05/2024 Annual Gynecologic Pelvic and Breast Exam 12/28/2024 12/28/2023 MAMMOGRAM 12/16/2025 12/14/2023, 11/06, 12/30/2021, Additional history exists PAP SMEAR 06/05/2027 06/04/2024, 12/05, 12/16/2021, Additional history exists Pneumococcal Vaccine 0-49 Aged Out No longer eligible based on patient's age to complete this topic Medical Devices Implanted Type Area Manager Application Device Identifier Shelf Expiration Date Model / Serial / Lot Kt Seal Hemos Abs Floseal Matrx 1.5/Fast/Prep 5000/Iu 10ml - [id number] Implanted:Qty : 1 on 11/13/2024 by Angie Jaquez MD at [facility] Implant N/A: Uterus [employer] [place] [id number] 04/20/2026 [id number] / / [id number] Procedures Procedure Name Priority Date/Time Associated Diagnosis Comments CBC AND DIFFERENTIAL Routine 12/24/2024 1:06 PM EDT Bloating LIPASE Routine 12/24/2024 1:06 PM EDT Bloating COMPREHENSIVE METABOLIC PANEL Routine 12/24/2024 1:06 PM EDT Bloating URINE CULTURE Routine 12/24/2024 1:00 PM EDT Abnormal urine odor CT ANGIOGRAM CHEST PULMONARY EMBOLISM STAT 11/26/2024 2:18 PM EDT Chest pain on breathing LIQUID-BASED PAP SMEAR WITH HPV GENOTYPING REGARDLESS OF INTERPRETATION, [facility] (BETO,COR,MAD) Routine 06/04/2024 5:30 PM EDT Cervical cancer screening SCANNED - MAMMO 12/14/2023 from Last 3 Months or Most Recently Relevant to Health Maintenance Results * CBC & Differential (12/24/2024 1:06 PM [...] - 12/25/2024 7:10 AM EDT Performed at: - Lab[address] [id number] Stencil Maker: Surendra Lee PhD, Phone: [phone] Patient Fasting: N Angie Jaquez MD LAB BLOOD ORDERABLES Final Resul t Performing Organization Address [facility] de Phone Number [facility] [address] [place] [address], [place] [phone] [facility] [address] [place] [address], [place] [phone] * Lipase (12/24/2024 1:06 PM EDT) [facility] Lipase 33 14 - 72 U/L [facility] Blood 12/24/2024 1:06 PM EDT 12/24/2024 [facility] (AMBULATORY) - 12/25/2024 8:12 AM EDT Performed at: [address] [id number] Stencil Maker: Surendra Lee PhD, Phone: [phone] Patient Fasting: N us Angie Jaquez MD LAB BLOOD ORDERABLES Final Resul t Performing Organization Address [facility]/ZIP Co de Phone Number [facility] [address] [place] [address], [place] [phone] [facility] [address] [place] [address], * (ABNORMAL) Comprehensive Metabolic Panel (12/24/2024 1:06 PM EDT) Pathologist [facility] Glucose 83 70 - 99 mg/dL [facility] [...] Blood 12/24/2024 1:06 PM EDT 12/24/2024 Narrative [facility] - 12/25/2024 7:10 AM EDT Performed at: 01 - [facility] [id number] Stencil Maker: Surendra Lee PhD, Phone: [phone] Patient Fasting: N us Angie Jaquez MD LAB BLOOD ORDERABLES Final Resul t [facility] (AMBULATORY) [address] [place] [address], [facility] [address] [place] [address], * Urine Culture - Urine, Urine, Clean [...] / Unknown 12/24/2024 1:00 PM EDT 12/24/2024 Comment: Narrative [facility] (AMBULATORY) - 12/26/2024 6:10 AM EDT Performed at: [facility] - [facility] [address] [place] [id number] Stencil Maker: Surendra Lee PhD, Phone: [phone] Patient Fasting: N Angie Jaquez MD MICROBIOLOGY - GENERAL ORDERABLE S Final Result [facility] [address] [place] [address], [facility] [address] [place] [address], * CT Angiogram Chest Pulmonary Embolism (11/26/2024 2:18 PM EDT) Anatomical Region Laterality Modality Chest N/A Computed Tomogra phy 11/26/2024 2:27 PM EDT Impressions 11/26/2024 2:31 PM EDT Impression: No evidence of pulmonary embolism. No acute intrathoracic finding. Electronically Signed: Glynn Granger MD 11/26/2024 2:31 PM EDT Workstation ID: [id number] DxDesc Narrative 11/26/2024 2:[address] ANGIOGRAM CHEST PULMONARY EMBOLISM Date of Exam: 11/26/2024 1:56 PM EDT Indication: chest pain, postop. Comparison: None available. Technique: Axial CT images were obtained of the chest after the uneventful intravenous administration of iodinated contrast utilizing pulmonary embolism protocol. In addition, a 3-D volume rendered image was created for interpretation. Reconstructed coronal and sagittal images were also obtained. Automated exposure control and iterative construction methods were used. Findings: Thyroid and thoracic inlet: No significant abnormality. Lymph nodes: No pathologic appearing lymph nodes by imaging criteria. Calcified mediastinal and hilar nodes, likely sequelae of prior granulomatous disease. Cardiovascular: Normal appearing heart size. No pericardial effusion. Aorta and main pulmonary artery diameters are within normal range.No coronary artery calcifications.. No evidence of pulmonary embolism. Esophagus: No significant abnormality. Lung parenchyma: Scattered atelectasis. Calcified granulomas. No suspicious appearing opacities. Airways: Patent trachea and mainstem bronchi. Pleura: No pleural effusion or pneumothorax. Chest wall and osseous structures: Mild degenerative changes of the imaged spine. No acute osseous abnormality. Included abdomen: No significant abnormality. Procedure Note Glynn Granger MD - 11/26/2024 CT ANGIOGRAM CHEST PULMONARY EMBOLISM Date of Exam: 11/26/2024 1:56 PM EDT Indication: chest pain, postop. Comparison: None available. Technique: Axial CT images were obtained of the chest after the uneventfulintravenous administration of iodinated contrast utilizing pulmonaryembolism protocol. In addition, a 3-D volume rendered image was createdfor interpretation. Reconstructed coronal and sagittal images were also obtained. Automated exposure controland iterative construction methods were used. Findings: Thyroid and thoracic inlet: No significant abnormality. Lymph nodes: No pathologic appearing lymph nodes by imaging criteria.Calcified mediastinal and hilar nodes, likely sequelae of priorgranulomatous disease. Cardiovascular: Normal appearing heart size. No pericardial effusion.Aorta and main pulmonary artery diameters are within normal range.Nocoronary artery calcifications.. No evidence of pulmonary embolism. Esophagus: No significant abnormality. Lung parenchyma: Scattered atelectasis. Calcified granulomas. Nosuspicious appearing opacities. Airways: Patent trachea and mainstem bronchi. Pleura: No pleural effusion or pneumothorax. Chest wall and osseous structures: Mild degenerative changes of the imagedspine. No acute osseous abnormality. Included abdomen: No significant abnormality. IMPRESSION: Impression: No evidence of pulmonary embolism. No acute intrathoracic finding. Electronically Signed: Glynn Granger MD 11/26/2024 2:31 PM EDT Workstation ID: [id number] DxDesc Angie Jaquez MD IMG CT ORDERABLES Final Result * LIQUID-BASED PAP SMEAR WITH HPV GENOTYPING REGARDLESS OF INTERPRETATION (BETO,COR,MAD) (06/04/2024 5:30 PM EDT) Reference Lab Report [facility] [address] [place] [address] or [phone] Francesco Garibay M.D., Rubber Splicer PATIENT NAME LABORATORY NO. DM ESTEBAN [id number] AGE SEX SSN CLIENT REF # [facility] [place] 43 1980 F [id number] [facility] [address] REQUESTING Aleah. [place] [address] ANGIE JAQUEZ DATE COLLECTED DATE RECEIVED DATE REPORTED 06/04/2024 06/05/2024 06/14/2024 ThinPrep Pap with [facility] DIAGNOSIS: Negative for intraepithelial lesion or malignancy Multiple factors can influence accuracy of Pap tests; therefore, screening at regular intervals is necessary for early cancer detection. COMMENT: Benign cellular changes associated with reactive/reparativ e changes are present. Professional interpretation rendered by Francesco Garibay M.D., F.C.A.P. at [facility], [address] [place] [address]. SPECIMEN ADEQUACY: SATISFACTORY FOR EVALUATION Transformation zone is present. SOURCE OF SPECIMEN: CERVICAL SLIDES: 1 CLINICAL HISTORY: A Routine Encounter for biopsy Abnormal uterine bleeding (AUB) Menorrhagia with irregular cycle Control Pill Cervical cancer screening HPV HR-HPV POOL: Negative The Aptima HPV assay is an in vitro nucleic acid amplification test for the qualitative detection of E6/E7 viral messenger RNA from 14 high risk types of HPV in cervical specimens. The high risk HPV types detected include: 16, 18, 31, 33, 35, 39, 45, 51, 52, 56, 58, 59, 66, 68 FINGERPRINT CLASSIFIER: ERLINDA PRATT (ASCP) REVIEWED, DIAGNOSED AND ELECTRONICALLY SIGNED BY: Francesco Garibay M.D., F.C.A.P. CPT CODES: [id number], [id number], [id number] 06/14/2024 11:11 AM EDT [facility] ThinPrep Vial Collection / Unknown 06/04/2024 5:30 PM EDT 06/04/2024 5:30 PM EDT Angie Jaquez MD PATHOLOGY/CYTOLOGY ORDERABLES Fi nal Result [facility]
[address] [place] [address], * MAMMO Scan (12/14/2023) Anatomical Region Laterality Modality Other Shabana Broderick APRN CHART REVIEW TABS Final Re sult from Last 3 Months or Most Recently Relevant to Health Maintenance Insurance PPO Advance Directives * CPR (Attempt to Resuscitate) (Latest Code Status on File) Date Activated Date Inactivated Comments 11/13/2024 12:52 PM 11/14/2024 1:44 PM Question Answer Comments Code Status (Patient has no pulse and is not breathing): CPR (Attempt to Resuscitate) Medical Interventions (Patie nt has pulse or is breathing): Full Support Level Of Support Discussed With: Patient * CPR (Attempt to Resuscitate) Date Activated Date Inactivated Comments 11/13/2024 12:51 PM 11/13/2024 12:52 PM Question Answer Comments Code Status (Patient has no pulse and is not breathing): CPR (Attempt to Resuscitate) Medical Interventions (Patie nt has pulse or is breathing): Full Support Level Of Support Discussed With: Patient Care Teams Circular Gang Saw Operator Relationship Specialty Start Date End Date Ruby Beaulieu PA [address] [place] [address] PCP - General Physician Professor Of Education 11/26/24
--- OUTSIDE RECORDS SUMMARY | 2025-02-19 07:56 | XMS_ITS | Data Portability ---
Author Organization [facility] Address [address] [place] [address] Assessment Encounter Date Assessment Date Assessment LastModified by Organization Details LastModified Time 07/05/2023 07/05/2023 f/up yearly Has a daughter at [email or web address] Not available 07/05/2023 14:40:45 Plan of Treatment Reminders Order Date Submit Date Provider Last Modified By Organization Details Last Modified Time Details Appointments DERM VISIT 025 10:40AM ELISEO RAMIREZ GROUND LAYER Not available Not available Not available Lab None recorde d. Referral None recorde d. Procedures None recorde d. Surgeries None recorde d. Imaging None recorde d. Medication Orders None recorde d. Patient TargetsNo targets recorded. Patient Instructions Encounter Date Encounter Id Patient Instructions Last Modified By Organization Details Last Modified Time 07/05/2023 [id number] Education/alt/ri s ks/benefits/SE of Dx & Tx discussed. Daily UV protection with broad-spectrum SPF 30+ on exposed areas recommended. Pt encouraged to RTC with any new/changing lesions. [email or web address] Not available 06/29/2023 17:20:07 Reason for Referral None Reported. Problems Name Problem SNOMED Code Status Onset Date Resolution Date Notes Provider Name and Address Organization Details Recorded Time Low back pain 863616666 Active 2015 From Automated Load;Provi jasmine: Santillan, Pratik;St atus: Active Not Available [facility] 6 05:38:40 Kidney stone 36296312 Active 2015 From Automated Load;Provi jasmine: Santillan, Pratik;St atus: Active Not Available [facility] 6 05:38:40 Problem Notes None recorded. Medical Equipment None Reported. Allergies Allergen ID Allergen Name Allergen Category Reaction Reaction Severity Criticality Documentation Date Start Date Code Code System Note Provider Name and Address Organization Details Recorded Time 330644 Product containin g penicilli n (product) medicatio n Not available Not available Not available 01/30/20162015 22192 8001 SNOMED Comme nt: Creat ed By: Frederick fulton Date: 2015 5:33: 01 PM; Not Available [facility] 6 03:55:40 Medications Name Sig Start Date Stop Date Status Note LastModified by Organization Details LastModified Time lorazepam 2 mg/mL injection solution Every night at bedtime active Frequency: qhs;Medica tion Descriptio n: lorazepam; Dosage:1; refills:0 Not Available Not Available Not Available TRISPEC DMX 10 mg-187 mg/5 mL oral liquid active Medication Descriptio n: dextrometh orphan-gua ifenesin; Route:oral ; refills:0 Not Available Not Available Not Available Vitals None Recorded Social History None recorded. Functional Status None recorded. Mental Status None recorded. Family History Nothing Reported. Medical History No medical history recorded. Gynecological HistoryNo gynecological history recorded. Obstetrics History GPAL:G 0 P 0 0 0 0 Past Encounters Encounter ID Performer Location Encounter Start Date Encounter Closed Date Diagnosis/Indication Diagnosis SNOMED-CT Code Diagnosis ICD10 Code Diagnosis IMO Codes Diagnosis Note [id number] JULES RAMIREZ APRN [facility] [address] [place] [address] 07/05/2023 14:13:40 07/05/2023 14:44:42 Patient advised about exposure to the sun 957707348 Z71.89 Counseled on sun protective clothing/h ats and daily UV protection with otc broad-spec trum SPF 30+ on exposed areas. Regular self-skin exams recommende d. Pt encouraged to RTC with any new/changi ng lesions. Lentiginosis 570300868 L 81.4 Benign reassuranc e Family his tory of malignant melanoma 348339720 Z80.7 Maternal Grandmothe rHas had 2 lesions of MM Multiple b enign melanocytic nevi 338509056 D22.9 Benign reassuranc e Hemangioma 265144969 D18 .00 Benign reassuranc e Keratosis pilaris 666724 5 Q82.8 Benign reassuranc eRecommend ed mild soaps, moisturize r daily after showeringC era VE SA or Rough and Bumpy lotions Skin tag 311048347 L91.8 Benign reassuranc e Raised suleman orrheic keratosis 6005576189 37022 L82.1 Benign reassuranc e [facility] spots 329250754 L81.3 Benign reassuranc e Health Concerns Section Related Observation LastModified by Organization Detai ls LastModified Time None Recorded Concern Status LastModified by Organization Details LastModified Time None Recorded Advance Directives Directive None Recorded Payers Insurance Date Sequence Insurance Name Policy Number Policy Rico Covered Member ID Rico Member ID Guarantor Name 09/28/2023 1 [place] [id number] Genoveva B Box [id number] Genoveva B Box 07/04/2020 PAYMENT PLAN Genoveva B Box 04/18/2023 1 *SELF PAY* Re helder B Box Notes Date Note Type Note Provider Name and Address Organization Details Recorded Time 07/05/2023 text/html ROS as noted in the HPI New Patient Patient presents to the clinic today to establish care and have a full skin exam to check moles for possible skin cancer. Denies any other new, changing, or bleeding lesions, or other rashes, feels well, and has a positive family history of melanoma. ( Maternal Grandmother) JULES RAMIREZ, GROUND LAYER [address] [place], [address], [facility] 07/06/2023 07:28:30 OBGyn Episode No OBEpisode recorded.
--- OUTSIDE RECORDS SUMMARY | 2025-02-19 07:56 | XMS_ITS | Encounter Summary ---
[facility] Organization [facility] Address [address] [place] [address] Care Team Providers Care Grease Man Name Role Phone Ruby Beaulieu Primary Care Provider [phone] Encounter Details Date Type Department Care Team (Latest Contact Info) Description 01/07/2025 Travel Social History Tobacco Use Types Packs/Day [...] or training? Not on file Preferred Language Salvadorean 11/08/2024 Comments No Sex and Gender Information [...] on filedocumented in this encounter Care Teams Grease Man Relationship Specialty Start Date End Date Ruby Beaulieu PA [address] [place] [address] PCP - General Physician Crowning Hammer Operator 11/26/24 documented as of this encounter
--- OUTSIDE RECORDS SUMMARY | 2025-02-19 07:56 | XMS_ITS | Encounter Summary ---
Author Organization [facility] Address [address] [place] [address] Care Team Providers Care Website Designer Name Role Phone Ruby Beaulieu Primary Care Provider [phone] Reason for Visit * Reason Onset Date Comments NEEDS A NEW BREAST U/S ORDER 01/07/2025 Encounter Details Date Type Department Care Team (Late st Contact Info) Description 01/07/2025 Telephone [facility] O[facility]YN [address] [place] [address] Angie Alvarenga MD [address] [facility] [address] [place] [address] NEEDS A NEW BREAST U/S ORDER Social History Tobacco Use Types Packs/Day [...] or training? Not on file Preferred Language Syriac 11/08/2024 Comments No Sex and Gender Information Value Date Recorded Sex Assigned at Female 05/31/2024 9:40 AM EDT Legal Sex Female 2:57 PM EDT Gender Identity Not on file Sexual Orientation Not on file documented as of this encounter Miscellaneous Notes * Telephone Encounter - Irlanda Ash RegSched Rep - 01/07/2025 3:58 PM EST REFAXED * Telephone Encounter - Bev Hammer RegSched Rep - 01/07/2025 3:21 PM EST PT calling to f/u on same call as eDrek Hodge regarding PA for bilateral breast U/S. Pt is unable to get appt scheduled until order is completed. * Telephone Encounter - Janette Betancourt RegSched Rep - 01/07/2025 2:24 PM EST Caller: DEREK HODGE/CAT Relationship: Best call back number: [phone] What orders are you requesting (i.e. lab or imaging): NEEDS NEW BREAST U/S ORDER INSURANCE AUTHORIZATION WITH DATES AND WHETHER IT WAS A NO AUTH REQUIRED OR APPROVED., ORDERS CURRENTLY SAY PENDING SOSHE IS NOT ABLE TO BOOK THE U/S. SHE DID BOOK THE MAMMOGRAM In what timeframe would the patient need to come in: Where will you receive your lab/imaging services: Additional notes: documented in this encounter Plan of Treatment Scheduled Procedures Name Priority Associated Diagnoses Date/Ti me TOTAL LAPAROSCOPIC HYSTERECT KOKI BILATERAL SALPINGECTOMY Menorrhagia with irregular cycle Abnormal uterine bleeding (AUB) documented as of this encounter Visit Diagnoses Not on filedocumented in this encounter Care Teams Website Designer Relationship Specialty Start Date End Date Ruby Beaulieu PA [address] [place] [address] PCP - General Physician Kitchen Helper 11/26/24 documented as of this encounter
--- OUTSIDE RECORDS SUMMARY | 2025-02-19 07:56 | XMS_ITS | Encounter Summary ---
Author Organization [facility] Address [address] [place] [address] Care Team Providers Care Resin Coater Name Role Phone Ruby Beaulieu Primary Care Provider [phone] Encounter Details Date Type Department Care Team (Late st Contact Info) Description 12/27/2024 Results Follow-Up [facility] [address] [place] [address] Angie Alvarenga MD [address] [facility] [address] [place] [id number] Social History Tobacco Use Types Packs/Day Years [...] or training? Not on file Preferred Language Togolese 11/08/2024 Comments No Sex and Gender Information Value Date Recorded Sex Assigned at Female 05/31/2024 9:40 AM EDT Legal Sex Female 2:57 PM EDT Gender Identity Not on file Sexual Orientation Not on file documented as of this encounter Progress Notes * Angie Alvarenga MD - 12/27/2024 9:06 AM EDT Please call patient about results. Normal white count, lipase and no UTI on culture. CMP normal except ALT is mildly elevated. We can repeat this when she comes in for follow up postop appt documented in this encounter Plan of Treatment Scheduled Procedures Name Priority Associated Diagnoses Date/Ti me TOTAL LAPAROSCOPIC HYSTERECT KOKI BILATERAL SALPINGECTOMY Menorrhagia with irregular cycle Abnormal uterine bleeding (AUB) documented as of this encounter Visit Diagnoses Not on filedocumented in this encounter Care Teams Resin Coater Relationship Specialty Start Date End Date Ruby Beaulieu PA [address] [place] [address] PCP - General Physician Superannuation Funds Manager 11/26/24 documented as of this encounter
--- OUTSIDE RECORDS SUMMARY | 2025-02-19 07:56 | XMS_ITS | Encounter Summary ---
Author Organization [facility] Address [address] [place] [address] Care Team Providers Care Arts Education Teacher Name Role Phone Ruby Beaulieu Primary Care Provider [phone] Encounter Details Date Type Department Care Team (Late st Contact Info) Description 06/07/2024 Results Follow-Up [facility] [address] [place] [address] Angie Alvarenga MD [address] [facility] [address] [place] [phone] Social History Tobacco Use Types Packs/Day Years Used Date Smoking Tobacco: Never Smokeless Tobacco: Never Alcohol Use Standard Drinks/Week Comments Yes 0 (1 standard drink = 0.6 oz pur e alcohol) Rare Comments No Sex and Gender Information Value Date Recorded Sex Assigned at Female 05/31/2024 9:40 AM EDT Legal Sex Female 2:57 PM EDT Gender Identity Not on file Sexual Orientation Not on file documented as of this encounter Progress Notes * Angie Alvarenga MD - 06/07/2024 8:33 AM EDT Please call patient about results. EMB negative documented in this encounter Plan of Treatment Scheduled Procedures Name Priority Associated Diagnoses Date/Ti me TOTAL LAPAROSCOPIC HYSTERECT KOKI BILATERAL SALPINGECTOMY Menorrhagia with irregular cycle Abnormal uterine bleeding (AUB) documented as of this encounter Visit Diagnoses Not on filedocumented in this encounter Care Teams Arts Education Teacher Relationship Specialty Start Date End Date Ruby Beaulieu PA [address] [place] [address] PCP - General Physician Director Of Volunteer Services 11/26/24 documented as of this encounter
--- OUTSIDE RECORDS SUMMARY | 2025-02-19 07:56 | XMS_ITS | Clinical Summary ---
Author Organization [facility] Address [address] [place] [address], [address] [place] [address] Care Team Providers Care Customer Greeter Name Role Phone Unavailable Primary Care Provider Unavailabl e Social History Tobacco Use Types Packs/Day Years Used Date Smoking Tobacco: Never Assessed Comments Unknown Sex and Gender Information Value Date Recorded Sex Assigned at Not on file Legal Sex Female 2:26 PM EDT Gender Identity Not on file Sexual Orientation Not on file Plan of Treatment Not on file Insurance
--- OUTSIDE RECORDS SUMMARY | 2025-02-19 07:56 | XMS_ITS | Data Portability ---
Author Organization [employer], [place] - [place] Address [address] [place] [address] Assessment No assessment recorded. Plan of Treatment Reminders Order Date Submit Date Provider Last Modified By Organization Details Last Modified Time Details Appointments None recorded. Lab CBC w/ auto diff 2024 025 [facility] [address] [place], [address], 5 06:09:44 CMP, serum or plasma [address] [address] [place], [address], 5 06:09:45 TSH + free T4, serum 2024 025 [facility] [address] [place], [address], 5 06:09:44 HbA1c (hemoglobin A1c), blood 2024 025 [facility]), [address] [place], [address], 5 06:09:47 lipid panel, serum 2024 025 [facility] [address] [place], [address], 5 06:09:46 Hepatitis C IgG Ab, qual, serum 2024 025 [place] [facility] [address], [place], [address], 5 06:09:46 HIV 1 + 2, meaningful use set 2024 025 [place] [facility]), [address], [place], [address], 06:09:47 Referral None recorded. Procedures None recorded. Surgeries None recorded. Imaging None recorded. Medication Orders lorazepam 1 mg tablet 2024 025 [facility], [address], [address], 16:56:21 ciprofloxac in 500 mg tablet 2024 025 [facility], [address], [address], 16:52:29 Adipex-P 37.5 mg tablet 2024 025 [facility], [address], [address], 5 16:56:22 lorazepam 1 mg tablet 2024 025 [facility], [address], [address], 5 11:02:51 Wegovy 0.25 mg/0.5 mL subcutaneou s pen injector 2024 025 [facility], [address], [address], 5 15:53:14 Zithromax Z-Sukumar 250 mg tablet 2023 024 [facility], [address], [address], 15:19:13 lorazepam 1 mg tablet 2023 024 [facility], [address], [address], 11:41:58 Patient TargetsNo targets recorded. Patient Instructions Encounter Date Encounter Id Patient Instructions Last Modified By Organization Details Last Modified Time 02/16/2024 [id number] Acute Sinusitis: Care Instructions [email or web address] Not available 02/16/2024 15:10:20 03/29/2024 [id number] body mass index: care instructions [email or web address] Not available 03/29/2024 17:32:29 learning about healthy weight [email or web address] Not available 03/29/2024 17:32:29 08/24/2024 [id number] body mass index: care instructions [email or web address] Not available 08/24/2024 10:58:32 learning about healthy weight [email or web address] Not available 08/24/2024 10:58:32 HIV testing: car e instructions [email or web address] Not available 08/24/2024 11:04:38 01/15/2025 [id number] body mass index: care instructions [email or web address] Not available 01/15/2025 16:56:15 learning about healthy weight [email or web address] Not available 01/15/2025 16:56:16 Reason for Referral None Reported. Results Created Date Observation Date Name Description Value Unit Range Abnormal Flag Note LastModifiedBy Organization Detail LastModifiedTime 03/30/19 25 04/03/2024 TOXAS SURE FLEX 19, UR summary report FINAL ===== ===== ===== ===== ===== ===== ===== ===== ===== ===== ===== ===== ===== === ToxAs sure Flex 19, Ur ===== ===== ===== ===== ===== ===== ===== ===== ===== ===== ===== ===== ===== === Test Resul t Flag Units Drug Prese nt Loraz epam 500 ng/mg creat Sourc e of loraz epam is a sched uled presc ripti on medic ation . ===== ===== ===== ===== ===== ===== ===== ===== ===== ===== ===== ===== ===== === Test Resul t Flag Units Ref Range Creat inine 50 mg/dL >=20 ===== ===== ===== ===== ===== ===== ===== ===== ===== ===== ===== ===== ===== === Decla red Medic ation s: Medic ation list was not provi ded. ===== ===== ===== ===== ===== ===== ===== ===== ===== ===== ===== ===== ===== === For clini duc consu ltati on, pleas e call . ===== ===== ===== ===== ===== ===== ===== ===== ===== ===== ===== ===== ===== === Not Available [facility]) [address], [place], [address], 04/04/2024 00:06:43 03/30/19 25 04/03/2024 TOXAS SURE FLEX 19, UR pdf . Not Available [facility] ([facility]) [address], [place], [address], 04/04/2024 00:06:43 03/30/19 25 04/03/2024 TOXAS SURE FLEX 19, UR creatinine 50 mg/dL REFER ENCE RANGE : Ref Range >=20 Not Available [facility] ([facility]) [address] [place], [address], 04/04/2024 00:06:43 03/30/19 25 04/03/2024 TOXAS SURE FLEX 19, UR amphetamines ia Negati ve NG/mL cutoff :300 Not Available [facility] ([facility]) [address] [place], [address], 04/04/2024 00:06:43 03/30/19 25 04/03/2024 TOXAS SURE FLEX 19, UR benzodiazepi karoline +POSIT GEMINI+ Not Available [facility] ([facility]) [address] [place], [address], 04/04/2024 00:06:43 03/30/19 25 04/03/2024 TOXAS SURE FLEX 19, UR diazepam Not Detect ed NG/mg _crea t Not Available [facility] ([facility]) [address] [place], [address], 04/04/2024 00:06:43 03/30/19 25 04/03/2024 TOXAS SURE FLEX 19, UR desmethyldia zepam Not Detect ed NG/mg _crea t Not Available [facility] ([facility]) [address] [place], [address], 04/04/2024 00:06:43 03/30/19 25 04/03/2024 TOXAS SURE FLEX 19, UR oxazepam Not Detect ed NG/mg _crea t Not Available [facility] ([facility]) [address] [place], [address], 04/04/2024 00:06:43 03/30/19 25 04/03/2024 TOXAS SURE FLEX 19, UR temazepam Not Detect ed NG/mg _crea t Expec mick metab olism of benzo diaze pine class drugs : Paren t Drug Detec mick Metab olite s ----- ----- - ----- ----- ----- ----- Diaze yonas: Desme thyld iazep am, Temaz epam, Oxaze yonas Chlor diaze poxid e: Desme thyld iazep am, Oxaze yonas Clora zepat e: Desme thyld iazep am, Oxaze yonas Halaz epam: Desme thyld iazep am, Oxaze yonas Temaz epam: Oxaze yonas Oxaze yonas: None Not Available [facility] ([facility]) [address] [place], [address], 04/04/2024 00:06:43 03/30/1904/03/2024 TOXAS SURE FLEX 19, UR alprazolam Not Detect ed NG/mg _crea t Not Available [facility] ([facility]) [address] [place], [address], 04/04/2024 00:06:43 03/30/19 25 04/03/2024 TOXAS SURE FLEX 19, UR alpha-hydrox yalprazolam Not Detect ed NG/mg _crea t Not Available [facility] ([facility]) [address] [place], [address], 04/04/2024 00:06:43 03/30/1904/03/2024 TOXAS SURE FLEX 19, UR desalkylflur azepam Not Detect ed NG/mg _crea t Not Available [facility] ([facility]) [address] [place], [address], 04/04/2024 00:06:43 03/30/1904/03/2024 TOXAS SURE FLEX 19, UR lorazepam 500 NG/mg _crea t Not Available [facility] ([facility]) [address] [place], [address], 04/04/2024 00:06:43 03/30/19 25 04/03/2024 TOXAS SURE FLEX 19, UR alpha-hydrox ytriazolam Not Detect ed NG/mg _crea t Not Available [facility] ([facility]) [address] [place], [address], 04/04/2024 00:06:43 03/30/19 25 04/03/2024 TOXAS SURE FLEX 19, UR clonazepam Not Detect ed NG/mg _crea t Not Available [facility] ([facility]) [address] [place], [address], 04/04/2024 00:06:43 03/30/19 25 04/03/2024 TOXAS SURE FLEX 19, UR 7-aminoclona zepam Not Detect ed NG/mg _crea t Not Available [facility] ([facility]) [address] [place], [address], 04/04/2024 00:06:43 03/30/19 25 04/03/2024 TOXAS SURE FLEX 19, UR midazolam Not Detect ed NG/mg _crea t Not Available [facility]) [address] [place], [address], 04/04/2024 00:06:43 03/30/19 25 04/03/2024 TOXAS SURE FLEX 19, UR alpha-hydrox ymidazolam Not Detect ed NG/mg _crea t Not Available [facility]) [address] [place], [address], 04/04/2024 00:06:43 03/30/19 25 04/03/2024 TOXAS SURE FLEX 19, UR flunitrazepa m Not Detect ed NG/mg _crea t Not Available [facility] ([facility]) [address] [place], [address], 04/04/2024 00:06:43 03/30/19 25 04/03/2024 TOXAS SURE FLEX 19, UR desmethylflu nitrazepam Not Detect ed NG/mg _crea t Not Available [facility] ([facility]) [address] [place], [address], 04/04/2024 00:06:43 03/30/19 25 04/03/2024 TOXAS SURE FLEX 19, UR cocaine metabolite ia Negati ve NG/mL cutoff :150 Not Available [facility]) [address] [place], [address], 04/04/2024 00:06:43 03/30/19 25 04/03/2024 TOXAS SURE FLEX 19, UR ethanol biomarkers ia Negati ve NG/mL cutoff :500 Not Available [facility]) [address] [place], [address], 04/04/2024 00:06:43 03/30/19 25 04/03/2024 TOXAS SURE FLEX 19, UR cannabinoids ia Negati ve NG/mL cutoff :20 Not Available [facility]) [address] [place], [address], 04/04/2024 00:06:43 03/30/19 25 04/03/2024 TOXAS SURE FLEX 19, UR 6-acetylmorp dylan ia Negati ve NG/mL cutoff :10 Not Available [facility]) [address] [place], [address], 04/04/2024 00:06:43 03/30/19 25 04/03/2024 TOXAS SURE FLEX 19, UR opiate class ia Negati ve NG/mL cutoff :100 Not Available [facility]) [address] [place], [address], 04/04/2024 00:06:43 03/30/19 25 04/03/2024 TOXAS SURE FLEX 19, UR oxycodone class ia Negati ve NG/mL cutoff :100 Not Available [facility]) [address] [place], [address], 04/04/2024 00:06:43 03/30/19 25 04/03/2024 TOXAS SURE FLEX 19, UR methadone ia Negati ve NG/mL cutoff :100 Not Available [facility]) [address] [place], [address], 04/04/2024 00:06:43 03/30/19 25 04/03/2024 TOXAS SURE FLEX 19, UR methadone mtb ia Negati ve NG/mL cutoff :100 Not Available [facility]) [address] [place], [address], 04/04/2024 00:06:43 03/30/19 25 04/03/2024 TOXAS SURE FLEX 19, UR buprenorphin e ia Negati ve NG/mL cutoff :5.0 Not Available [facility] ([facility]) [address] [place], [address], 04/04/2024 00:06:43 03/30/19 25 04/03/2024 TOXAS SURE FLEX 19, UR fentanyl ia Negati ve NG/mL cutoff :2.0 Not Available [facility]) [address] [place], [address], 04/04/2024 00:06:43 03/30/1904/03/2024 TOXAS SURE FLEX 19, UR tapentadol ia Negati ve NG/mL cutoff :200 Not Available [facility]) [address] [place], [address], 04/04/2024 00:06:43 03/30/19 25 04/03/2024 TOXAS SURE FLEX 19, UR propoxyphene ia Negati ve NG/mL cutoff :300 Not Available [facility]) [address] [place], [address], 04/04/2024 00:06:43 03/30/19 25 04/03/2024 TOXAS SURE FLEX 19, UR tramadol ia Negati ve NG/mL cutoff :200 Not Available [facility]) [address] [place], [address], 04/04/2024 00:06:43 03/30/19 25 04/03/2024 TOXAS SURE FLEX 19, UR methylphenid ate ia Negati ve NG/mL cutoff :100 Not Available [facility]) [address] [place], [address], 04/04/2024 00:06:43 03/30/19 25 04/03/2024 TOXAS SURE FLEX 19, UR barbiturates ia Negati ve NG/mL cutoff :200 Not Available [facility]) [address] [place], [address], 04/04/2024 00:06:43 03/30/19 25 04/03/2024 TOXAS SURE FLEX 19, UR phencyclidin e ia Negati ve NG/mL cutoff :25 Not Available [facility]) [address] [place], [address], 04/04/2024 00:06:43 03/30/19 25 04/03/2024 TOXAS SURE FLEX 19, UR gabapentin ia Negati ve ug/mL cutoff :1.0 Not Available [facility]) [address] [place], [address], 04/04/2024 00:06:43 03/30/19 25 04/03/2024 TOXAS SURE FLEX 19, UR anticonvulsa nts Negati ve Not Available [facility]) [address] [place], [address], 04/04/2024 00:06:43 03/30/19 25 04/03/2024 TOXAS SURE FLEX 19, UR pregabalin Not Detect ed Not Available [facility]) [address] [place], [address], 04/04/2024 00:06:43 03/30/19 25 04/03/2024 TOXAS SURE FLEX 19, UR carisoprodol ia Negati ve NG/mL cutoff :100 Not Available [facility]) [address] [place], [address], 04/04/2024 00:06:43 08/25/19 25 08/25/2024 TSH+F REE T4 TSH 2.280 uIU/m L 0.450- 4.500 normal Not Available [facility]) [address] [place], [address], 08/25/2024 06:09:44 08/25/19 25 08/25/2024 TSH+F REE T4 T4,free(dire ct) 1.12 NG/dL 0.82-1 .77 normal Not Available [facility]) [address] [place], [address], 08/25/2024 06:09:44 08/25/19 25 08/25/2024 CBC WITH DIFFE RENTI AL/PL ATELE T WBC 8.2 x10e3 /uL 3.4-10 .8 normal Not Available [facility]) [address] [place], [address], 08/25/2024 06:09:44 08/25/19 25 08/25/2024 CBC WITH DIFFE RENTI AL/PL ATELE T RBC 4.67 x10e6 /uL 3.77-5 .28 normal Not Available [facility]) [address] [place], [address], 08/25/2024 06:09:44 08/25/19 25 08/25/2024 CBC WITH DIFFE RENTI AL/PL ATELE T hemoglobin 13.6 g/dL 11.1-1 5.9 normal Not Available [facility]) [address] [place], [address], 08/25/2024 06:09:44 08/25/19 25 08/25/2024 CBC WITH DIFFE RENTI AL/PL ATELE T hematocrit 42.3 % 34.0-4 6.6 normal Not Available [facility]) [address] [place], [address], 08/25/2024 06:09:44 08/25/19 25 08/25/2024 CBC WITH DIFFE RENTI AL/PL ATELE T MCV 91 fL 79-97 normal Not Available [facility]) [address] [place], [address], 08/25/2024 06:09:44 08/25/19 25 08/25/2024 CBC WITH DIFFE RENTI AL/PL ATELE T MCH 29.1 pg 26.6-3 3.0 normal Not Available [facility] ([facility]) [address] [place], [address], 08/25/2024 06:09:44 08/25/19 25 08/25/2024 CBC WITH DIFFE RENTI AL/PL ATELE T MCHC 32.2 g/dL 31.5-3 5.7 normal Not Available [facility]) [address] [place], [address], 08/25/2024 06:09:44 08/25/19 25 08/25/2024 CBC WITH DIFFE RENTI AL/PL ATELE T RDW 13.1 % 11.7-1 5.4 Not Available [facility]) [address] [place], [address], 08/25/2024 06:09:44 08/25/19 25 08/25/2024 CBC WITH DIFFE RENTI AL/PL ATELE T platelets 302 x10e3 /uL 150-45 0 normal Not Available [facility]) [address] [facility] [place], [address], 08/25/2024 06:09:44 08/25/19 25 08/25/2024 CBC WITH DIFFE RENTI AL/PL ATELE T neutrophils 61 % not estab. normal Not Available [facility]) [address] [facility] [facility], [place], [address], 08/25/2024 06:09:44 08/25/19 25 08/25/2024 CBC WITH DIFFE RENTI AL/PL ATELE T lymphs 32 % not estab. normal Not Available [facility] ([facility]) [address] [facility], [place], [address], 08/25/2024 06:09:44 08/25/19 25 08/25/2024 CBC WITH DIFFE RENTI AL/PL ATELE T monocytes 5 % not estab. normal Not Available [facility] ([facility]) [address] [facility], [place], [address], 08/25/2024 06:09:44 08/25/19 25 08/25/2024 CBC WITH DIFFE RENTI AL/PL ATELE T eos 1 % not estab. normal Not Available [facility]) [address] [facility], [place], [address], 08/25/2024 06:09:44 08/25/19 25 08/25/2024 CBC WITH DIFFE RENTI AL/PL ATELE T basos 1 % not estab. normal Not Available [facility] ([facility]) [address] [facility], [place], [address], 08/25/2024 06:09:44 08/25/19 25 08/25/2024 CBC WITH DIFFE RENTI AL/PL ATELE T immature cells ROUNDSMAN Not Available [facility] [address] [facility], [place], [address], 08/25/2024 06:09:44 08/25/19 25 08/25/2024 CBC WITH DIFFE RENTI AL/PL ATELE T neutrophils (absolute) 5.0 x10e3 /uL 1.4-7. 0 normal Not Available [facility] ([facility]) [address] [place], [address], 08/25/2024 06:09:44 08/25/19 25 08/25/2024 CBC WITH DIFFE RENTI AL/PL ATELE T lymphs (absolute) 2.6 x10e3 /uL 0.7-3. 1 normal Not Available [facility] ([facility]) [address] [place], [address], 08/25/2024 06:09:44 08/25/19 25 08/25/2024 CBC WITH DIFFE RENTI AL/PL ATELE T monocytes(ab solute) 0.4 x10e3 /uL 0.1-0. 9 normal Not Available [facility] ([facility]) [address] [place], [address], 08/25/2024 06:09:44 08/25/19 25 08/25/2024 CBC WITH DIFFE RENTI AL/PL ATELE T eos (absolute) 0.1 x10e3 /uL 0.0-0. 4 normal Not Available [facility] ([facility]) [address] [place], [address], 08/25/2024 06:09:44 08/25/19 25 08/25/2024 CBC WITH DIFFE RENTI AL/PL ATELE T baso (absolute) 0.0 x10e3 /uL 0.0-0. 2 normal Not Available [facility] ([facility]) [address] [place], [address], 08/25/2024 06:09:44 08/25/19 25 08/25/2024 CBC WITH DIFFE RENTI AL/PL ATELE T immature granulocytes 0 % not estab. Not Available [facility] ([facility]) [address] [place], [address], 08/25/2024 06:09:44 08/25/19 25 08/25/2024 CBC WITH DIFFE RENTI AL/PL ATELE T immature grans (abs) 0.0 x10e3 /uL 0.0-0. 1 Not Available [facility] ([facility]) [address] [facility] [facility], [place], [address], 08/25/2024 06:09:44 08/25/19 25 08/25/2024 CBC WITH DIFFE RENTI AL/PL ATELE T NRBC ROUNDSMAN Not Available [facility] ([facility]) [address] [facility] [facility], [place], [address], 08/25/2024 06:09:44 08/25/19 25 08/25/2024 CBC WITH DIFFE RENTI AL/PL ATELE T hematology comments: ROUNDSMAN Not Available [facility]) [address] [facility], [place], [address], 08/25/2024 06:09:44 08/25/19 25 08/25/2024 COMP. METAB OLIC PANEL (14) glucose 87 mg/dL 70-99 normal Not Available [facility] ([facility]) [address] [facility], [place], [address], 08/25/2024 06:09:45 08/25/19 25 08/25/2024 COMP. METAB OLIC PANEL (14) BUN 13 mg/dL 6-24 normal Not Available [facility] ([facility]) [address] [facility] [facility], [place], [address], 08/25/2024 06:09:45 08/25/19 25 08/25/2024 COMP. METAB OLIC PANEL (14) creatinine 0.75 mg/dL 0.57-1 .00 normal Not Available [facility] ([facility]) [address] [facility] [facility], [place], [address], 08/25/2024 06:09:45 08/25/19 25 08/25/2024 COMP. METAB OLIC PANEL (14) eGFR 102 mL/mi n/1.7 3 >59 normal Not Available [facility] ([facility]) [address] [place], [address], 08/25/2024 06:09:45 08/25/19 25 08/25/2024 COMP. METAB OLIC PANEL (14) BUN/creatini ne ratio 17 9-23 normal Not Available [facility] [address] [place], [address], 08/25/2024 06:09:45 08/25/19 25 08/25/2024 COMP. METAB OLIC PANEL (14) sodium 138 mmol/ L 134-14 4 normal Not Available [facility] ([facility]) [address] [facility] [facility], [place], [address], 08/25/2024 06:09:45 08/25/19 25 08/25/2024 COMP. METAB OLIC PANEL (14) potassium 4.3 mmol/ L 3.5-5. 2 normal Not Available [facility] ([facility]) [address] [place], [address], 08/25/2024 06:09:45 08/25/19 25 08/25/2024 COMP. METAB OLIC PANEL (14) chloride 104 mmol/ L 96-106 normal Not Available [facility] ([facility]) [address] [place], [address], 08/25/2024 06:09:45 08/25/19 25 08/25/2024 COMP. METAB OLIC PANEL (14) carbon dioxide, total 17 mmol/ L 20-29 below low normal Not Available [facility] ([facility]) [address] [place], [address], 08/25/2024 06:09:45 08/25/19 25 08/25/2024 COMP. METAB OLIC PANEL (14) calcium 9.5 mg/dL 8.7-10 .2 normal Not Available [facility] ([facility]) [address] [place], [address], 08/25/2024 06:09:45 08/25/19 25 08/25/2024 COMP. METAB OLIC PANEL (14) protein, total 7.5 g/dL 6.0-8. 5 normal Not Available [facility] ([facility]) [address] [place], [address], 08/25/2024 06:09:45 08/25/19 25 08/25/2024 COMP. METAB OLIC PANEL (14) albumin 4.5 g/dL 3.9-4. 9 normal Not Available [facility] ([facility]) [address] [place], [address], 08/25/2024 06:09:45 08/25/19 25 08/25/2024 COMP. METAB OLIC PANEL (14) globulin, total 3.0 g/dL 1.5-4. 5 Not Available [facility] ([facility]) [address] [place], [address], 08/25/2024 06:09:45 08/25/19 25 08/25/2024 COMP. METAB OLIC PANEL (14) bilirubin, total 0.2 mg/dL 0.0-1. 2 normal Not Available [facility] ([facility]) [address] [place], [address], 08/25/2024 06:09:45 08/25/19 25 08/25/2024 COMP. METAB OLIC PANEL (14) alkaline phosphatase 60 IU/L 44-121 normal Not Available [facility] [address] [place], [address], 08/25/2024 06:09:45 08/25/19 25 08/25/2024 COMP. METAB OLIC PANEL (14) AST (SGOT) 19 IU/L 0-40 normal Not Available [facility] ([facility]) [address] [place], [address], 08/25/2024 06:09:45 08/25/19 25 08/25/2024 COMP. METAB OLIC PANEL (14) ALT (SGPT) 24 IU/L 0-32 normal Not Available [facility] ([facility]) [address] [place], [address], 08/25/2024 06:09:45 08/25/19 25 08/25/2024 LIPID PANEL cholesterol, total 289 mg/dL 100-19 9 above high normal Not Available [facility] ([facility]) [address] [place], [address], 08/25/2024 06:09:45 08/25/19 25 08/25/2024 LIPID PANEL triglyceride s 127 mg/dL 0-149 normal Not Available [facility]) [address] [place], [address], 08/25/2024 06:09:45 08/25/19 25 08/25/2024 LIPID PANEL HDL cholesterol 72 mg/dL >39 normal Not Available [facility] [address] [place], [address], 08/25/2024 06:09:45 08/25/19 25 08/25/2024 LIPID PANEL VLDL cholesterol duc 22 mg/dL 5-40 Not Available [facility] [address] [place], [address], 08/25/2024 06:09:45 08/25/19 25 08/25/2024 LIPID PANEL LDL chol calc (rust) 195 mg/dL 0-99 above high normal Not Available [facility] ([facility]) [address] [place], [address], 08/25/2024 06:09:45 08/25/19 25 08/25/2024 LIPID PANEL LDL calc comment: Commen t Consi jasmine evalu ating for Famil ial Hyper anuel stero lemia (FH), if clini joão indic ated. Not Available [facility] ([facility]) [address] [facility], [place], [address], 08/25/2024 06:09:45 08/25/19 25 08/25/2024 HCV ANTIB HARDEEP CASCA DE(PC R/GEN O) HCV Ab Non Reacti ve non reacti ve Not Available [facility] ([facility]) [address] [facility], [place], [address], 08/25/2024 06:09:46 08/25/19 25 08/25/2024 HCV ANTIB HARDEEP CASCA DE(PC R/GEN O) interpretati on: Commen t Not infec mick with HCV unles s early or acute infec tion is suspe cted (whic h may be delay ed in an immun ocomp romis ed indiv idual ), or other evide nce exist s to indic ate HCV infec tion. Not Available [facility] ([facility]) [address] [facility], [place], [address], 08/25/2024 06:09:46 08/25/19 25 08/25/2024 HEMOG LOBIN A1C hemoglobin A1C 5.4 % 4.8-5. 6 normal Predi abete s: 5.7 - 6.4 Diabe dhruv: >6.4 Glyce blair contr ol for adult s with diabe dhruv: <7.0 Not Available [facility] ([facility]) [address] [facility], [place], [address], 08/25/2024 06:09:47 08/25/19 25 08/25/2024 HIV AB/P2 4 AG WITH REFLE X HIV Ab/P24 Ag screen Non Reacti ve non reacti ve HIV Negat gemini HIV-1 /HIV- 2 antib odies and HIV-1 p24 antig en were NOT detec mick. There is no labor atory evide nce of HIV infec tion. Not Available [facility] ([facility]) [address], [place], [address], 08/25/2024 06:09:47 03/23/1903/22/2024 XR, chest , 2 view No observ ation record ed. [email or web address] [facility] (Med Record) [address], [place], [address], 03/29/2024 17:30:31 03/30/1912/14/2023 MAMMO , scree hugh, bilat eral No observ ation record ed. [email or web address] [facility] [address], [place], [address], 03/30/2024 09:53:13 Result Notes None recorded. Problems Name Problem SNOMED Code Status Onset Date Resolution Date Notes Provider Name and Address Organization Details Recorded Time Generalized anxiety disorder 30092323 Active 2023 JESS Carrion [address] [place] [address], [address], [employer] 11:58:24 Localized eruption of skin 344875841 Completed 202304/23/2024 JESS Carrion [address] [place] [address], [address], [employer] 11:58:44 Herpes zoster 2526890 Completed 202304/23/2024 JESS Carrion [address] [place] [address], [address] 8, [employer] 11:58:40 Acute sinusitis 74966032 Completed 202304/23/2024 JESS Carrion [address] [place] [address], [address], [employer] 11:58:29 Cough 04796430 Completed 202404/23/2024 JESS Carrion [address] [place] [address], [address] 8, [employer] 5 11:58:35 Weight increased 942631749 Active 2024 JESS Carrion [address] [place] [address], [address], [employer] 5 10:53:37 Recurrent urinary tract infection [id number] Active 2024 JESS Carrion [address] [place] [address], [phone], [employer] 5 16:52:06 Problem Notes None recorded. Procedures Surgical History Date Name Laterality Status Provider Name and Address Organization Details Recorded Time 06/05/19 25 Date of Last Pap Smear completed [facility] 08/24/2024 10:33:28 12/13/19 24 Most Recent Mammogram completed [facility]. 12/16/2023 11:13:09 Tonsillectomy completed [facility]. 12/16/2023 11:13:11 Laparoscopy completed [facility] [employer] 12/16/2023 11:15:45 Partial Hysterectomy completed [facility]. 01/15/2025 16:35:19 Imaging Results None recorded. Procedure Notes None recorded. Medical Equipment None Reported. Allergies Allergen ID Allergen Name Allergen Category Reaction Reaction Severity Criticality Documentation Date Start Date Code Code System Note Provider Name and Address Organization Details Recorded Time 21004 Product containin g penicilli n (product) medicatio n rash respirato ry distress Not available Not available Not available 12/16/2023 11700 8001 SNOMED [facility], [employer] 4 11:13:06 55794 cephalexi n medicatio n swelling Not available high 01/21/20252020 2231 RxNorm Tongu e swell ing - liqu id form (raj ent [...] height Body mass index (BMI) Body weight Body temperature Heart rate Oxygen saturation Systolic And Diastolic Provider Name and Address Organization Details Last Updated DateTime 5 170.18 cm 31.6 kg/m2 10896.6 6 g 98.1 [degF] 78 /min 98 % 123/76 mm[Hg] [employer] 5 16:52:46 Date Recorded Body height Body mass index (BMI) Body weight Oxygen saturation Heart rate Body temperature Systolic And Diastolic Provider Name and Address Organization Details Last Updated DateTime 5 170.18 cm 33 kg/m2 47910.5 5 g 98 % 80 /min 98 [degF] 120/78 mm[Hg] [employer] 5 10:40:48 Date Recorded Body weight Body mass index (BMI) Body height Heart rate Oxygen saturation Systolic And Diastolic Provider Name and Address Organization Details Last Updated DateTime 4 59229.5 3 g 31.8 kg/m2 170.18 cm 80 /min 98 % 128/77 mm[Hg] [employer] 4 11:13:46 Date Recorded Body height Body mass index (BMI) Body weight Oxygen saturation Heart rate Body temperature Systolic And Diastolic Provider Name and Address Organization Details Last Updated DateTime 5 170.18 cm 32.8 kg/m2 17169.5 2 g 99 % 80 /min 97.7 [degF] 134/84 mm[Hg] [employer] 5 16:39:44 Date Recorded Body height Body mass index (BMI) Body weight Oxygen saturation Heart rate Body temperature Systolic And Diastolic Provider Name and Address Organization Details Last Updated DateTime 4 170.18 cm 31.2 kg/m2 25409.6 8 g 98 % 89 /min 99.5 [degF] 130/81 mm[Hg] [facility] [employer] 4 15:03:44 Social History Question Answer Notes LastModified by Organizat ion Details LastModified Time Tobacco Smoking Status Never Smoker [facility] [facility], [employer] 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 None Information not available [...] not available 12/16/2023 Where Do You Live? [facility] Information not available 01/15/2025 Do You Have A Medical Power Of Recapper? No Information not available 12/16/2023 What Was [...] Functional Status Question Answer Note LastModified by Organizat ion Details LastModified Time Do you use [...] Mental Status Question Answer Note LastModified by Organizat ion Details LastModified Time Do you feel stressed (tense, restless, nervous, or anxious, or unable to sleep at night)? [id number] Information not available 03/29/2024 Do you have [...] Stones N Blood Diseases N Hyperthyroidism N Blood Transfusion N Breast Cancer N Emergency room visit since last appointm ent. N COPD N Depression N Dermatologic Disorders N Lung Disease N Hypothyroidism N Developmental or Behavioral Disorders N Defects or Inherited Disease N Breast Problem N Difficulty Swallowing N Anesthesia Complications N History of STI N Anxiety Disorder Y Meniere's disease N Autoimmune disease N Muscle, Joint, or Bone Problems N Vision or Eye Problems N Arthritis N Infertility N Polyps N Mental Disorder N Congenital Anomalies N Acid Reflux (GERD) N Cancer N Stroke N Neurologic/Epilepsy N Endometriosis N Bladder or Kidney Problems Y High Cholesterol Y Liver Disease N Psychiatric/Mental Health Condition N Organ Transplant N Fibromyalgia N Headaches N Schizophrenia N Dialysis N Kidney Disease N Allergies/Hayfever N Heart [...] N Pulmonary Embolism N Tourette Syndrome N Chronic Ear Infections N Pre-Eclampsia N Hypertension N Chicken Pox N Autism Spectrum Disorder (ASD) N Osteoporosis N Thrombophilias N Gynecological History Statement/Question Response [...] 0.5 mL 06/11/2020 completed CICI Molina - [facility] [facility] [employer] 02/16/2024 15:01:01 Past Encounters Encounter ID Performer Location Encounter Start Date Encounter Closed Date Diagnosis/Indication Diagnosis SNOMED-CT Code Diagnosis ICD10 Code Diagnosis IMO Codes Diagnosis Note [id number] JESS Carrion [facility] [address] [place] [id number] 2 12/16/2023 11:00:25 12/16/2023 14:22:27 Generalized anxiety disorder 43790890 F41.1 [facility] #[id number] reviewed Localized eruption of skin 582426571 R21 This seems to be resolving already on its ownWill call if it worsens/sp reads [id number] JESS Carrion [facility] [address] [place] [address] 02/16/2024 14:57:09 02/16/2024 15:09:39 Acute sinusitis 83775443 J01.90 [id number] Ruby Beaulieu [facility] [address] [place] [id number] 2 03/29/2024 16:47:44 03/29/2024 17:21:33 Adult health examination 800734367 Z00.00 Body mass index 30+ - obesity 214072379 Z68.31 [id number] JESS Carrion [facility] [address] [place] [id number] 2 08/24/2024 10:32:06 08/24/2024 11:05:11 Weight increased 998888618 R63.5 48631 HIV screening 215422628 Z11.4 183883 Viral scre ening status 553201845 Z11.59 659144 Generalize d anxiety disorder 78307318 F41.1 Body mass index 30+ - obesity 368552095 Z68.33 [id number] Ruby Beaulieu [facility] [address] [place] [id number] 2 01/15/2025 16:29:09 01/15/2025 16:57:14 Recurrent urinary tract infection 624909926 N39.0 5835534 Generalize d anxiety disorder 91875018 F41.1 Body mass index 30+ - obesity 290042854 Z68.32 277147 Health Concerns Section Related Observation LastModified by Organization Detai ls LastModified Time None Recorded Concern Status LastModified by Organization Details LastModified Time None Recorded Advance Directives Directive N: Payers Insurance Date Sequence Insurance Name Policy Number Policy Rico Covered Member ID Rico Member ID Guarantor Name 08/24/2024 1 [place] [id number] Genoveva B Box [id number] [employer] Box 12/16/2023 1 *SELF PAY* Re helder Box 08/29/2024 1 [place] Gen[place] Box [id number] RC Genoveva Box 01/12/2025 1 [place] [id number] Genoveva Box [id number] RC Genoveva Box 08/24/2024 1 [place] Gen[place]va Box [id number] Gen[employer]va Box Notes Date Note Type Note Provider Name and Address Organization Details Recorded Time 12/16/2023 text/html Patient presents to establish care.Patient had a rash appear on her right breast 2 days ago. It has some blistering, itching, burning. Was concerned about shingles but it is already drying up and going away.Had mammogram that same day.History of anxiety/insomnia. Takes Lorazepam PRN. Due for refills. States medicine is effective. Denies side effects. JESS Carrion [address] [place], [address], [employer] 12/16/2023 11:46:47 02/16/2024 text/html Patient had COVID19 3 weeks ago. Now has ear pain, sinus pain and congestion, sore throat, fever. OTC meds aren't helping. JESS Carrion [address] [place], [phone], [email or web address] 02/16/2024 16:20:29 03/29/2024 text/html Annual WellnessReported by PatientSocial/Behavior al HistoryFor diet and nutrition, patient reportshealthy dietanddiscussed vitamin and supplement use. For fracture risk, patient reportsno history of fractures. For physical activity, patient reportsexercises on a regular basis. For additional lifestyle factors, patient reportsno tobacco useandno alcohol intake.Mental Status:For depression risk, patient reportsnever feels sad, empty, or tearful,no loss of interest in activities, andno agitation.Functional AbilityFor hearing, patient reportsno loss of hearing. For vision, patient reportsno vision problems. Annual wellness examRecently had cough and low grade fever. Improving. JESS Carrion [address] [place], [address], [email or web address] 03/29/2024 17:32:37 08/24/2024 text/html ROS as noted in the HPI Patient presents for followup.She is having a hysterectomy in November. She has adenomyosis and has had recurrent UTIs.History of anxiety. Due for refills. Takes Lorazepam.Patient is concerned about weight gain. States that she has been working out, eating clean, etc. and has not lost weight. Most of the weight is residing in her abdomen. JESS Carrion [address] [place], [address], [employer] 08/27/2024 16:48:28 01/15/2025 text/html ROS as noted in the HPI Recently had a partial hysterectomy.Has gained about 10 pounds. She is sometimes hot but she does still have her ovaries.Needs refills on her Lorazepam.Would like to try Adipex for post hysterectomy weight gainHas recurrent UTIs. Wonders if she can possibly try Cipro prophylactically. A friend does that and it works well for her. JESS Carrion [address] [place], [address], [employer] 01/15/2025 17:55:05 OBGyn Episode No OBEpisode recorded.
== END 2025-02-19 23:59 | disposition home or self-care (01) ==
LOC: RAD 07:53
PROVIDERS: PCP Physician Assistant; Visit Provider Obstetrics & Gynecology
DX: Z12.31 Encounter for screening mammogram for malignant neoplasm of breast (principal); R92.333 Mammographic heterogeneous density, bilateral breasts; N63.21 Unspecified lump in the left breast, upper outer quadrant; N63.24 Unspecified lump in the left breast, lower inner quadrant; Z80.3 Family history of malignant neoplasm of breast
CPT/HCPCS: 76641; 77063; 77067